=== PATIENT | female | born 1945 | race Caucasian/White ===

== ENCOUNTER → 2022-09-01 13:03 | Outpatient (BNVA) | payer MEDICARE, OTHER, SELFPAY | PROVIDERS: PCP Internal Medicine; Visit Provider Internal Medicine Pulmonary Disease | DX: J44.9 Chronic obstructive pulmonary disease, unspecified (principal); Z80.1 Family history of malignant neoplasm of trachea, bronchus and lung | CPT/HCPCS: 99202 ==

== ENCOUNTER 2022-09-12 16:19 | Outpatient (REF) | payer MEDICARE, OTHER, SELFPAY ==
--- NOTE | ~2022-09-12 | CT_ITS ---
EXAMINATION: CT CHEST WITHOUT CONTRAST CLINICAL INFORMATION: Family history of lung cancer COMPARISON: None TECHNIQUE: Multidetector volumetric CT imaging of the chest was done. Axial MIP volume rendering provided. Sagittal and coronal reformatted images were obtained. This CT examination was performed using dose optimization techniques as appropriate, variously including the following: *Automated exposure control *Adjustment of mA and/or kV according to patient size (this includes techniques or standardized protocols for targeted exams where dose is matched to indication/reason for exam; i.e. extremities or head) *Use of iterative reconstruction technique DLP: 147 mGy-cm FINDINGS: LUNGS: There are several clustered small peribronchial nodules in the right lower lobe suggestive of tree-in-bud appearance or airways disease. Largest pulmonary nodule measures 4 mm axial image 256 series 7. There are several clustered calcified and noncalcified left lower lobe nodules and increased linear markings or scarring for example axial image 250- 280 series 7 in the left lower lobe. Largest discrete nodule measures 4 mm axial image 260 or series 7. There is a 3 mm peripheral or subpleural left upper lobe nodule axial image 276 series 7. There is a 3 mm left upper lobe nodule axial image 298 series 7. There is a 3 mm calcified right lower lobe nodule axial image 294 series 7. There is a 3 mm right middle lobe nodule axial image 352 series 7. There are clustered irregularly-shaped medial segment right middle lobe nodules. Largest nodule measures 6 x 12 mm axial image 402 series 7. There are clustered nodules in the anterior segment of the both upper lobes near the interhemispheric fissure maximum measuring 3 to 4 mm on the right axial image 257 series 7 and 5 x 10 mm on the left axial image 317 series 7. MEDIASTINUM: Normal thyroid gland. Normal heart size. No pericardial effusion. Normal caliber thoracic aorta. No enlarged hilar or mediastinal lymph nodes. CORONARY ARTERY CALCIFICATION: Mild PLEURA: There is no pleural effusion. No pleural mass or thickening. AXILLA: No lymphadenopathy. UPPER ABDOMEN: The gallbladder has been removed. 3 cm cyst in the upper pole of the left kidney. OSSEOUS STRUCTURES: Degenerative changes of the spine. CT/CT chest wo IV con IMPRESSION: Bilateral pulmonary nodules, majority appear clustered suggesting tree-in-bud appearance or infectious or inflammatory process, the largest nodule measuring 6 x 12 mm in the right middle lobe. According to the UPDATED 2017 Fleischner Society recommendations, the advised follow-up imaging greater than 8 mm nodule: Low dose chest CT follow-up in 3 months for high and low risk low risk patients. Fleischner guidelines were followed.
== END 2022-09-12 16:20 | disposition home or self-care (01) ==
LOC: HO.CT 16:19
PROVIDERS: Visit Provider Internal Medicine Pulmonary Disease
DX: R91.8 Other nonspecific abnormal finding of lung field (principal); Z80.1 Family history of malignant neoplasm of trachea, bronchus and lung
CPT/HCPCS: 71250

== ENCOUNTER → 2022-10-05 12:49 | Outpatient (BNVA) | payer MEDICARE, OTHER, SELFPAY | PROVIDERS: PCP Internal Medicine; Visit Provider Internal Medicine Pulmonary Disease | DX: R91.1 Solitary pulmonary nodule (principal); Z80.1 Family history of malignant neoplasm of trachea, bronchus and lung | CPT/HCPCS: 99212 ==

== ENCOUNTER 2023-01-08 11:07 | Outpatient (REF) | payer MEDICARE, OTHER, SELFPAY ==
--- NOTE | ~2023-01-08 | CT_ITS ---
EXAMINATION: CT CHEST WITHOUT CONTRAST CLINICAL INFORMATION: Solitary pulmonary nodule. COMPARISON: CT chest 09/12/2022. TECHNIQUE: Multidetector volumetric CT imaging of the chest was done. Axial MIP volume rendering provided. Sagittal and coronal reformatted images were obtained. This CT examination was performed using dose optimization techniques as appropriate, variously including the following: *Automated exposure control *Adjustment of mA and/or kV according to patient size (this includes techniques or standardized protocols for targeted exams where dose is matched to indication/reason for exam; i.e. extremities or head) *Use of iterative reconstruction technique DLP: 152 mGy-cm FINDINGS: SEARCH DIRECTOR: Well-inflated lungs. LUNGS: There is a tree-in-bud appearance in the right lower lobe adjacent to the major fissure axial image 260/5, linear ill-defined opacity with calcification in left lower lobe axial image 254/5, 3 mm nodule left lower lobe lateral segment image 279/5, 2 mm nodule left upper lobe anteriorly image 293/5, 2 mm nodule right middle lobe axial image 354/5. Several clustered nodules irregular-shaped right middle lobe are stable. There are subpleural linear densities in the right lower lobe lateral basal segment. MEDIASTINUM: Thyroid lobes are symmetric and normal. The central trachea and bronchi are widely patent. The heart size and great vessels are normal caliber. No abnormal-size mediastinal lymph node seen. There is no pericardial effusion. CORONARY ARTERY CALCIFICATION: None visualized on this study. PLEURA: There is no pleural effusion. No pleural mass or thickening. AXILLA: No abnormal axillary lymph node seen. UPPER ABDOMEN: Visualized liver, spleen, pancreas and bilateral adrenal glands unremarkable. The gallbladder has been surgically removed. OSSEOUS STRUCTURES: No aggressive lytic or sclerotic process seen. CT/CT chest wo IV con IMPRESSION: Stable multiple bilateral pulmonary nodules. No new pulmonary nodule seen. Likely inflammatory or infectious etiology. No bronchiectasis or bronchial wall thickening. No abnormal mediastinal or hilar lymphadenopathy. Fleischner guidelines were followed.
== END 2023-01-08 11:08 | disposition home or self-care (01) ==
LOC: HO.CT 11:07
PROVIDERS: PCP Internal Medicine; Visit Provider Internal Medicine Pulmonary Disease
DX: R91.1 Solitary pulmonary nodule (principal)
CPT/HCPCS: 71250

== ENCOUNTER → 2023-01-23 13:10 | Outpatient (BNVA) | payer MEDICARE, OTHER, SELFPAY | PROVIDERS: PCP Internal Medicine; Visit Provider Internal Medicine Pulmonary Disease | DX: R91.1 Solitary pulmonary nodule (principal); Z80.1 Family history of malignant neoplasm of trachea, bronchus and lung | CPT/HCPCS: 99212 ==

== ENCOUNTER 2023-07-09 13:55 | Outpatient (REF) | payer MEDICARE, OTHER, SELFPAY ==
--- NOTE | ~2023-07-09 | CT_ITS ---
EXAMINATION: CT CHEST WITHOUT CONTRAST CLINICAL INFORMATION: Solitary pulmonary nodule. COMPARISON: Prior CT scans of the chest 01/08/2023 ( Stable multiple bilateral pulmonary nodules. No new pulmonary nodule seen. Likely inflammatory or infectious etiology. ) along with 09/12/2022. TECHNIQUE: Multidetector volumetric CT imaging of the chest was done. Axial MIP volume rendering provided. Sagittal and coronal reformatted images were obtained. This CT examination was performed using dose optimization techniques as appropriate, variously including the following: *Automated exposure control *Adjustment of mA and/or kV according to patient size (this includes techniques or standardized protocols for targeted exams where dose is matched to indication/reason for exam; i.e. extremities or head) *Use of iterative reconstruction technique DLP: 141 mGy-cm FINDINGS: LUNGS: Some small lung nodules, some calcified and some in tree-in-bud formation have demonstrated no worrisome change when compared to the prior study. None of the nodular densities are greater than 3 mm in size. A concerning lung mass is not present at this time. Green images of all abnormalities have been saved. MEDIASTINUM: Heart size normal. Calcific plaque present in the thoracic aorta. The visualized thyroid appears normal. No mediastinal or hilar lymphadenopathy is seen. CORONARY ARTERY CALCIFICATION: Present PLEURA: There is no pleural effusion. No pleural mass or thickening. AXILLA: No lymphadenopathy. UPPER ABDOMEN: A benign left upper pole 3.6 cm Bosniak class I renal cyst is noted which requires no additional imaging or follow up. No solid renal masses are seen. Status post cholecystectomy. OSSEOUS STRUCTURES: Degenerative changes are present in the spine without bony destructive lesions. CT/CT chest wo IV con IMPRESSION: 1. No worrisome lung mass is seen. 2. Lung nodules are stable. 3. Incidentally noted benign left renal cyst and degenerative changes in the spine. Fleischner guidelines were followed.
== END 2023-07-09 13:56 | disposition home or self-care (01) ==
LOC: HO.CT 13:55
PROVIDERS: PCP Internal Medicine; Visit Provider Internal Medicine Pulmonary Disease
DX: R91.1 Solitary pulmonary nodule (principal)
CPT/HCPCS: 71250

== ENCOUNTER 2023-07-12 11:16 | Outpatient (AMB) | payer MEDICARE, OTHER, SELFPAY ==
--- NOTE | 2023-07-12 11:17 | A.OFFVIS_ITS ---
Intake Vital Signs 07/12/23 11:18 Height 5 ft 2 in Weight 158 lb 11.725 oz BMI 29.0 BP 102/62 Blood Pressure Location Lt brachial Position Sitting Pulse 75 Pulse Source Doppler Pulse Oximetry (%) 96 Oxygen Delivery Method Room Air Intake Visit Reasons: Pulmonary Nodules Allergies No Known Allergies Allergy (Verified 07/12/23 11:20) HPI Pulmonary Nodules HPI Details 78-year-old lady, former minimal smoker in her 30s, with underlying family history of nonsmall lung cancer in her daughter in her 40s and bone marrow cancer in her father with remote history of 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 Her 6 months follow-up CT chest showed stability of underlying nodules. She denies any recent exacerbations. [facility] Social History (Updated 07/12/23 @ 11:22 by Samantha Hines [facility]) Patient Tobacco Use Status: Never used Tobacco Review of Systems Const Denies daytime sleepiness, Denies excessive sweating, Denies fatigue, Denies fever(s), Denies lethargy, Denies malaise, Denies night sweats, Denies snoring and Denies weight loss Eyes Denies blurry vision and Denies itchy eyes ENT Denies nasal congestion, Denies post nasal drip, Denies sinus pain, Denies sinus pressure and Denies other ( Thrush) Card Denies chest pain, Denies pedal edema, Denies dyspnea, Denies orthopnea and Denies paroxysmal nocturnal dyspnea Resp Denies cough, Denies hemoptysis, Denies excessive phlegm production, Denies dyspnea, Denies snoring and Denies wheezing GI Denies abdominal pain and Denies heartburn Musc Denies myalgias, Denies arthralgias and Denies joint swelling Skin/Breast Denies rash Neuro Denies memory loss and Denies seizure-like activity Psych Denies abnormal sleep pattern, Denies anxiety and Denies memory loss Endo Denies excessive sweating, Denies fatigue and Denies heat intolerance Yovani/Lymph Denies easy bruising Aller/Immun Denies itchy eyes, Denies seasonal rhinorrhea and Denies wheezing Physical Exam Vital Signs: Last Vital Signs Pulse 75 07/12/23 11:18 BP 102/62 07/12/23 11:18 Pulse Ox 96 07/12/23 11:18 Oxygen Delivery Method Room Air 07/12/23 11:18 BMI result Body Mass Index 29.0 Const General: no acute distress and alert Nutritional Appearance: not obese Orientation/consciousness: Other orientation findings ( oriented) HEENT Head: Yes atraumatic Eyes General: appearance normal, both eyes and all related structures Sclerae: sclerae normal EOM: EOMs intact bilaterally Neck Neck: Yes supple Lymphatic: no lymphadenopathy noted Resp Effort & Inspection: normal respiratory effort and no use of accessory muscles Auscultation: clear to auscultation bilaterally Cardio Rate: regular rate Rhythm: regular rhythm Heart sounds: no gallops, no murmurs and no rubs Skin General skin exam: other ( warm) Extrem General: No clubbing, No cyanosis and No edema Assessment & Plan Assessment & Plan (1) Pulmonary nodule: Code(s): R91.1 - Solitary pulmonary nodule Plan: Results of follow-up CT chest reviewed, pulmonary nodule stable on 3 and 6 months follow-up, will repeat CT chest in 12 months, if stable at that time, no further imaging follow-up would be needed. (2) Family history of lung cancer: Code(s): Z80.1 - Family history of malignant neoplasm of trachea, bronchus and lung (3) COPD (chronic obstructive pulmonary disease): Code(s): J44.9 - Chronic obstructive pulmonary disease, unspecified Plan: Patient only rarely uses her albuterol MDI. At this time does not Symbicort, will discontinue. Orders: Orders CT chest wo IV con 07/08/24 R91.1 - Solitary pulmonary nodule Coding Level of Care Code Est Pt Level 4 (70549) Diagnoses Pulmonary nodule R91.1 Family history of lung cancer Z80.1 COPD (chronic obstructive pulmonary disease) J44.9
[2023-07-12 11:18] VITALS: BP 102/62; PULSE 75; O2SAT 96; BMI 29.0
== END 2023-07-12 11:31 | disposition home or self-care (01) ==
PROVIDERS: PCP Internal Medicine; Visit Provider Internal Medicine Pulmonary Disease
DX: R91.1 Solitary pulmonary nodule (principal); Z80.1 Family history of malignant neoplasm of trachea, bronchus and lung; J44.9 Chronic obstructive pulmonary disease, unspecified
CPT/HCPCS: 99214

== ENCOUNTER → 2023-07-12 11:16 | Outpatient (BNVA) | payer MEDICARE, OTHER, SELFPAY | PROVIDERS: PCP Internal Medicine; Visit Provider Internal Medicine Pulmonary Disease | DX: R91.1 Solitary pulmonary nodule (principal); J44.9 Chronic obstructive pulmonary disease, unspecified; Z80.1 Family history of malignant neoplasm of trachea, bronchus and lung | CPT/HCPCS: 99212 ==

== ENCOUNTER 2024-05-23 12:05 | Outpatient (REF) | payer MEDICARE, OTHER, SELFPAY | END 2024-05-23 12:06 | disposition home or self-care (01) | LOC: HO.SH 12:05 | PROVIDERS: Visit Provider Internal Medicine | DX: Z01.118 Encounter for examination of ears and hearing with other abnormal findings (principal); H90.3 Sensorineural hearing loss, bilateral | CPT/HCPCS: 92557 ==

== ENCOUNTER 2024-07-07 12:57 | Outpatient (REF) | payer MEDICARE, OTHER, SELFPAY ==
--- NOTE | ~2024-07-07 | CT_ITS ---
EXAMINATION: CT CHEST WITHOUT CONTRAST CLINICAL INFORMATION: Solitary pulmonary nodule. COMPARISON: CT chest dated July 09, 2023. TECHNIQUE: Multidetector volumetric CT imaging of the chest was done. Axial MIP volume rendering provided. Sagittal and coronal reformatted images were obtained. This CT examination was performed using dose optimization techniques as appropriate, variously including the following: *Automated exposure control *Adjustment of mA and/or kV according to patient size (this includes techniques or standardized protocols for targeted exams where dose is matched to indication/reason for exam; i.e. extremities or head) *Use of iterative reconstruction technique DLP: 274 mGy-cm FINDINGS: Submitted for interpretation on 09/19/2024. LUNGS: There are cluster of linear and 3 mm nodular attenuation seen in the lingula right middle lobe and the periphery of the left and right lower lung lobes. 3 mm subpleural nodule in the posterior left hemithorax. No consolidation, pleural effusion or pneumothorax. No bronchiectasis. No honeycombing. Respiratory airways patent. No lymphadenopathy in the mediastinum or perihilar or the axillary region. Calcified plaques in the thoracic aortic arch and the origin of its main branches. No aneurysm in the thoracic aorta. Focal consolidations in the coronary arteries. No pericardial effusion. 4 cm exophytic fluid density in the upper pole left kidney. 1.8 cm fluid density in the midportion of the right kidney. Calcified plaques in the splenic artery and the origin of the main renal arteries as well as the celiac trunk. Multilevel thoracolumbar spondylosis without acute fracture or listhesis. No acute cortical disruption in the ribs. The thyroid gland is not enlarged. CT/CT chest wo IV con IMPRESSION: Probably scarring attenuation abnormalities, right middle lobe, lingula and lower lung lobes. Stable. Cystic lesions, both kidneys. Fleischner guidelines were followed. Electronically signed by: Stewart Goff MD 09/19/2024 02:04 PM ALFR[facility]
== END 2024-07-07 12:58 | disposition home or self-care (01) ==
LOC: HO.CT 12:57
PROVIDERS: PCP Internal Medicine; Visit Provider Internal Medicine Pulmonary Disease
DX: R91.1 Solitary pulmonary nodule (principal)
CPT/HCPCS: 71250

== ENCOUNTER → 2024-07-07 13:02 | Outpatient (BNV) | payer MEDICARE, OTHER, SELFPAY | PROVIDERS: PCP Internal Medicine; Visit Provider Radiology Diagnostic Radiology | DX: R91.1 Solitary pulmonary nodule (principal) | CPT/HCPCS: 71250 ==

== ENCOUNTER 2024-07-15 14:39 | Outpatient (AMB) | payer MEDICARE, OTHER, SELFPAY ==
--- NOTE | 2024-07-15 14:45 | MHC.OFFVIS ---
Vital Signs 07/15/24 14:47 Height 5 ft 3 in Weight 156 lb BMI 27.6 BP 132/77 Blood Pressure Location Rt brachial Position Sitting Pulse 69 Pulse Source Doppler Pulse Oximetry (%) 98 Oxygen Delivery Method Room Air Intake Visit Reasons: copd Allergies Sulfa (Sulfonamide Antibiotics) Allergy (Severe, Verified 07/15/24 14:55) rash cats Allergy (Severe, Uncoded 07/15/24 14:55) Eye Swelling IV contrast Allergy (Severe, Uncoded 07/15/24 14:55) Blister HPI HPI copd: Details: 79-year-old lady, former minimal smoker in her 30s, with underlying family history of nonsmall lung cancer in her daughter in her 40s and bone marrow cancer in her father with remote history of 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 Her 12 month follow-up CT scan results are not available for this appointment, however on my review, no worrisome pulmonary nodules are noted. She rarely requires to use her albuterol MDI. [facility] Social History Patient Tobacco Use Status: Never used Tobacco Review of Systems Const Denies daytime sleepiness, Denies excessive sweating, Denies fatigue, Denies fever(s), Denies lethargy, Denies malaise, Denies night sweats, Denies snoring and Denies weight loss Eyes Denies blurry vision and Denies itchy eyes ENT Denies nasal congestion, Denies post nasal drip, Denies sinus pain, Denies sinus pressure and Denies other ( Thrush) Card Denies chest pain, Denies pedal edema, Denies dyspnea, Denies orthopnea and Denies paroxysmal nocturnal dyspnea Resp Denies cough, Denies hemoptysis, Denies excessive phlegm production, Denies dyspnea, Denies snoring and Denies wheezing GI Denies abdominal pain and Denies heartburn Musc Denies myalgias, Denies arthralgias and Denies joint swelling Skin/Breast Denies rash Neuro Denies memory loss and Denies seizure-like activity Psych Denies abnormal sleep pattern, Denies anxiety and Denies memory loss Endo Denies excessive sweating, Denies fatigue and Denies heat intolerance Yovani/Lymph Denies easy bruising Aller/Immun Denies itchy eyes, Denies seasonal rhinorrhea and Denies wheezing Physical Exam Vital Signs: Last Vital Signs Pulse 69 07/15/24 14:47 BP 132/77 07/15/24 14:47 Pulse Ox 98 07/15/24 14:47 Oxygen Delivery Method Room Air 07/15/24 14:47 BMI result Body Mass Index 27.6 Const General: no acute distress and alert Nutritional Appearance: not obese Orientation/consciousness: Other orientation findings ( oriented) HEENT Head: Yes atraumatic Eyes General: appearance normal, both eyes and all related structures Sclerae: sclerae normal EOM: EOMs intact bilaterally Neck Neck: Yes supple Lymphatic: no lymphadenopathy noted Resp Effort & Inspection: normal respiratory effort and no use of accessory muscles Auscultation: clear to auscultation bilaterally Cardio Rate: regular rate Rhythm: regular rhythm Heart sounds: no gallops, no murmurs and no rubs Skin General skin exam: other ( warm) Extrem General: No clubbing, No cyanosis and No edema Assessment & Plan Assessment & Plan (1) COPD (chronic obstructive pulmonary disease): Code(s): J44.9 - Chronic obstructive pulmonary disease, unspecified Category: Medical Plan: Minimal smoker, rarely requires albuterol MDI. Continue current regimen. (2) Pulmonary nodule: Code(s): R91.1 - Solitary pulmonary nodule Category: Medical Plan: Results of [address] chest follow-up not available for this visit. On my review no worrisome nodules. At this time no further imaging follow-up is required. Coding Level of Care Code Est Pt Level 4 (80109) Diagnoses COPD (chronic obstructive pulmonary disease) J44.9 Pulmonary nodule R91.1
[2024-07-15 14:47] VITALS: BP 132/77; PULSE 69; O2SAT 98; BMI 27.6
== END 2024-07-15 15:00 ==
PROVIDERS: PCP Internal Medicine; Visit Provider Internal Medicine Pulmonary Disease
DX: J44.9 Chronic obstructive pulmonary disease, unspecified (principal); R91.1 Solitary pulmonary nodule
CPT/HCPCS: 99214

== ENCOUNTER → 2024-07-15 14:39 | Outpatient (BNVA) | payer MEDICARE, OTHER, SELFPAY | PROVIDERS: PCP Internal Medicine; Visit Provider Internal Medicine Pulmonary Disease | DX: J44.9 Chronic obstructive pulmonary disease, unspecified (principal); R91.1 Solitary pulmonary nodule; Z87.891 Personal history of nicotine dependence | CPT/HCPCS: 99212 ==

== ENCOUNTER 2025-09-18 14:35 | Outpatient (AMB) | payer MEDICARE, OTHER, SELFPAY ==
--- OUTSIDE RECORDS SUMMARY | 2025-02-09 03:45 | XMS_ITS ---
Author Organization [facility] Address [address] [place], [place] [id number] Care Team Providers Care Loss Prevention Auditor Name Role Phone DWIGHT RAMOS Primary Care Provide r [phone] RICKY CRUMP Unavailable [phone] ALLERGIES Allergen (clinical drug ingredient) Drug/Non Drug Allergy documented on EMR Reaction Allergy Type Onset Date Status IVP DYE (uncoded) hives Allergy Ac tive Cat dander Cat Dander Unknown Allergy Active Substance with sulfonamide structure and antibacterial mechanism of action (substance) Sulfa Antibiotics anaphylaxis Drug Allergy Active REASON FOR VISIT Left leg wound MEDICATIONS Medication SIG (Take, Route, Frequency, Duration) Notes Start Date End Date Status Losartan Potassium 25 MG 1 tab(s) orally twice a day Active Spironolactone 25 MG 1 tablet Orally Onc e a day Active Tylenol 8 Hour Arthritis Pain 650 MG 2 tablets as needed Orally every 8 hrs Active Carvedilol 6.25 MG 1 tablet with food Orally Twice a day Active Collagen Ultra - as directed Orally COLLAGEN PEPTIDES 400mg Active Nitroglycerin 0.4 MG as directed Translingual every 5 minutes as needed Active Vitamin C 500 MG 1 tab(s) orally once a day Active Vitamin D3 50 MCG (2000 UT) 2 cap(s) Orally once a day Active Magnesium 300 MG 1 capsule with a meal Orally Once a day Active B Complex - 1 cap(s) Orally once daily Active Albuterol Sulfate HFA 108 (90 Base) MCG/ACT 1 puff as needed Inhalation every 4 hrs 10/27/2022 Active Gabapentin 100 MG 2-3 cap(s) orally at night prn Active Atorvastatin Calcium 20 MG 1 tab(s) orally once a day Active Allopurinol 100 MG TAKE 1 TABLET BY MOUTH EVERY DAY Active LORazepam 0.5 MG 1 tablet at bedtime as needed Orally as needed 11/19/2024 Active VITAL SIGNS Height 61.75 in 02/09/2025 Weight 155 lbs 02/09/2025 Blood pressure systolic 116 mm Hg 02/10/20 25 Blood pressure diastolic 73 mm Hg 025 BMI 28.58 kg/m2 02/09/2025 Encounters Encounter Location Date Provider Diagnosis [facility] [address] [place] [address] 02/09/2025 DWIGHT FARMERACCO Laceration without foreign body, left lower leg, subsequent encounter S81.812D ; Hematoma of right breast N64.89 ; Primary hypertension I10 ; High cholesterol E78.00 ; Anxiety F41.9 and History of gout Z87.39 ASSESSMENTS Encounter Date Diagnosis Assessment Notes Treatment Notes Treatment Clinical Notes Section Notes 02/09/2025 Laceration without foreign body, left lower leg, subsequent encounter (ICD-10 - S81.812D) cont tx and fu as directed 02/09/2025 Hematoma of right breast (ICD-10 - N64.89) improving/resol ving 02/09/2025 Primary hypertension (ICD-10 - I10) is tolerating current regimen well and will cont 02/09/2025 High cholesterol (ICD-10 - E78.00) cont statin and heart healthy diet will monitor fasting lipids 02/09/2025 Anxiety (ICD-10 - F41.9) see hpi feels mood good overall 02/09/2025 History of gout (ICD-10 - Z87.39) doing well on allopurinol, no flares PLAN OF TREATMENT Treatment Notes Assessment Notes Laceration without foreign b amadeo, left lower leg, subsequent encounter cont tx and fu as directed Hematoma of right breast improving/resol ving Primary hypertension is tolerating curre nt regimen well and will cont High cholesterol cont statin and heart healthy diet will monitor fasting lipids Anxiety see hpi feels mood good overall History of gout doing well on allopu rinol, no flares Next Appt Details Follow Up: prn,6 Months, Fidelia son: Provider Name:DWIGHT ROSE, 03/19/2026 01:30:00 PM, [address] [facility], [place], [address], Progress Notes * Examination Category Sub-Category Detail Notes Category Not es General Examination see abov e History and Physical Notes * HPI (History of Present Illness) Category Sub-Category Detail Notes Category Not es General Pt Is here today for a follow-up visit h/o htn, ckd, abnl stress test, lbbb, mild copd, anxiety, The following is copied/reviewed/edited from previous: apc visit on 01/30/25 Pt here for f/u of L skin tear. (she also had apc visit for this on 01/26) at which time a referra to wound care was placed. She reports 2 days ago she noticed swelling and redness to her L ankle and foot area. Her toes looked like sausages. No fevers. She denies pain. No purulent discharge. She finished doxycycline 3 days ago. Today she reports her leg is much less swollen and red. She hasnt heard from [facility] wound clinic as of yet. Notes: she has a hematoma that may need to be drained; no evidence of cellulitis; -she has since been seen by wound care and has fu scheudled She was seen in the emergency room on 11/17/2023 with head injury. Had been complaining of right shoulder pain, neck pain, head pain. Questionable LOC. Day previously had been walking down the steps and slipped and fell striking her head on the right side of her body. -she had CT of head and neck. No acute injury no fracture or misalignment. had slipped on carpeted basement stairs -prior to injury had xray of neck for radiculopathy into both arms, had 11/23 visit was feeling okay and then over two weeks ago had a flare and doesn't know why. pain and nubmness radiating into arms and hands Does not know why but has had aches and pains throughout her whole body as well- we had sent in medrol dose pack but didnt receive , fortunately tells me her rheum sent in methyl- prednisone finished about a day ago adn is feeling better - has seen rheum, dr. hurt in past, History of arthritis, costochondritis in the past. Gets occasional injections for trochanteric bursitis. - h/o colon adenoma. gi [place] - 01/2021 CP admit, abnl stress test. fu w/ PVC Dr. Cisneros, [place]. fu q 6 mo. on statin and beta adam (no asa d/t easy bruising). EF 45%. . has fu w/ [facility]. no changes to meds. - on symbicort mild copd, h/o tobacco x 6 yr and h/o second hand smoke exposure. - occ anxiety 0.5 lorazepam, once in a while, hasnt' needed csc for this. uses infreq - colonoscopy 12/2018. fu in 5 yrs. - had seen allergy in distant past Dr. Augustin prn and flu/pnuemo shot fam h/o daughter lung ca 41 yo mom colorectal ca - h/o covid vac x 2 and booster and flu and both pneumonia vac - mammo up to date - chronic LE edema R>L wears compression stockings. bruises easily aspirin stopped months ago. cards did recent labs normal H/H and platelets. was referred to hematology. missed appt and will reschedule. Reminded her to bring in all medications including vitamins of herbal supplements to the visit. mild copd had pfts at [facility] about 2 yrs ago, ref to and seeing pulm at [place].at er visit after fall had imaging of neck and incidental note of ?pulm nodule, has had CT w/ pulm that noted this -She is taking and tolerating medications well venous testing for venous insuff was ordered by cardiology to be done at [place]. -earlier this year had fall irritated foot cyst which got infected, treated by rheum which josiah debrediment abx etc. It improved but not completely resolved. referred by him to veronique salcedo Dr. unfortunately because it affected her gait it caused pelvic dysfunction which she goes to PT for and affected her back and caused her trap pain dr fiordaliza salas CTS surgery 06/2024 recent notes reviewed w/ patient: flu and rsv utd -------- ROS GENERAL: No malaise, significant weight loss or fever HEENT: No changes in vision or hearing. No sore throat. No neck pain. No lumps or masses noted in neck. RESPIRATORY: No cough, wheezing see hpi CARDIOVASCULAR: No chest pain, leg swelling or palpitations GI: No abdominal discomfort, blood in stools or black stools : No incontinence. No dysuria. No gross hematuria. No nocturia. MUSCULOSKELETAL: see hpi SKIN: see hpi PSYCH: No sleep disturbance, mood disorder or recent psychosocial stressors. ENDOCRINE: No cold or heat intolerance, polyuria, polydipsia or goiter. HEME/LYMPH: see hpi No lymph node enlargement or tenderness. NEURO: No persistent headache, syncope, seizures, see hpi -------- PE APPEARANCE: Alert and in no acute distress HEENT: NCAT, EOMI, nl conjunctiva. external ears normal. tms normal, no sinus tenderness. no lymphadenopathy or thyromegaly HEART: RRR with normal S1 and S2 LUNG: clear to auscultation ABDOMEN: Bowel sounds normoactive, soft, non-tender, nondistended BACK: No pain to palpation EXTREMITIES: Extremities warm and without edema. NEURO: Awake, alert and oriented x 3 , gait normal, 5/5 strength in all 4 ext prox and distal SKIN: Skin color, texture, turgor normal. left LE skin tear/lacreation, wrapped, slight serosanguinous drainage
--- OUTSIDE RECORDS SUMMARY | 2025-02-23 06:12 | XMS_ITS ---
Author Organization [facility] Address [address], [place] [id number] Care Team Providers Care Advertising Teacher Name Role Phone DWIGHT RAMOS Primary Care Provide r [phone] RICKY CRUMP [phone] REASON FOR VISIT COVID Positive Encounters Encounter Location Date Provider Diagnosis [facility] [address] [place] [phone] 02/23/2025 DWIGHT RAMOS PLAN OF TREATMENT Next Appt Details Provider Name:DWIGHT ROSE, 03/19/2026 01:30:00 PM, [address] [place] [address], [phone],
--- OUTSIDE RECORDS SUMMARY | 2025-03-09 05:07 | XMS_ITS ---
Author Organization [facility] Address [address] [place], [place] [id number] Care Team Providers Care Java Developer With Security Clearance Name Role Phone DWIGHT RAMOS Primary Care Provide r [phone] RICKY CRUMP [phone] REASON FOR VISIT rescheduled appt Encounters Encounter Location Date Provider Diagnosis [facility] [address] [place] [address] 03/09/2025 DWIGHT RAMOS PLAN OF TREATMENT Next Appt Details Provider Name:DWIGHT ROSE, 03/19/2026 01:30:00 PM, [address] [place], [address],
--- OUTSIDE RECORDS SUMMARY | 2025-03-18 08:00 | XMS_ITS ---
Author Organization [facility] Address [address] [place], [place] [id number] Care Team Providers Care Axle Inspector Name Role Phone DWIGHT RAMOS Primary Care Provide r [phone] RICKY CRUMP Unavailable [phone] ALLERGIES Allergen (clinical drug ingredient) Drug/Non Drug Allergy documented on EMR Reaction Allergy Type Onset Date Status IVP DYE (uncoded) hives Allergy Ac tive Cat dander Cat Dander Unknown Allergy Active Substance with sulfonamide structure and antibacterial mechanism of action (substance) Sulfa Antibiotics anaphylaxis Drug Allergy Active REASON FOR REFERRAL Reason for eval and tx of l eft hip pain. Alternative PT fax [phone]. pls print Diagnosis 1 Left hip pain (M25.5 52) Referral Organization [facility] Referring Provider First Name DWIGHT Referring Provider Last Name URSULA ROMAN Referring Provider Speciality Internal M edicine Referred Provider Specialty Physical The remyy General Notes Alma KELLY [place] 1 10/31/2024 04:07:22 PM > [phone] Alternative PT faxed referral and last ov notes Referral Priority Routine REASON FOR VISIT 6m f/u MEDICATIONS Medication SIG (Take, Route, Frequency, Duration) Notes Start Date End Date Status Collagen Ultra - as directed Orally COLLAGEN PEPTIDES 400mg Active Losartan Potassium 25 MG 1 tab(s) orally twice a day Active B Complex - 1 cap(s) Orally once daily Active Carvedilol 6.25 MG 1 tablet with food Orally Twice a day Active Spironolactone 25 MG 1 tablet Orally Onc e a day Active Nitroglycerin 0.4 MG as directed Translingual every 5 minutes as needed Active Atorvastatin Calcium 20 MG 1 tab(s) orally once a day Active Vitamin D3 50 MCG (1999 UT) 2 cap(s) Orally once a day Active Vitamin C 500 MG 1 tab(s) orally once a day Active Magnesium 300 MG 1 capsule with a meal Orally Once a day Active Gabapentin 100 MG 2-3 cap(s) orally at night prn Active Tylenol 8 Hour Arthritis Pain 650 MG 2 tablets as needed Orally every 8 hrs Active LORazepam 0.5 MG 1 tablet at bedtime as needed Orally as needed 11/19/2024 Active Allopurinol 100 MG TAKE 1 TABLET BY MOUTH EVERY DAY Active Albuterol Sulfate HFA 108 (90 Base) MCG/ACT 1 puff as needed Inhalation every 4 hrs 10/27/2022 Active SOCIAL HISTORY Tobacco Use: Social History Observation Description Date Details (start date - stop date) Former Smoker NA - NA Sex Assigned At : Social History Observation Description Sex Assigned At Unknown Smoking Question Answer Notes Are you a: former smoker Section Notes: quit jul VITAL SIGNS Height 61.75 in 03/18/2025 Weight 154 lbs 03/18/2025 Blood pressure systolic 112 mm Hg 03/18/20 25 Blood pressure diastolic 71 mm Hg 025 BMI 28.39 kg/m2 03/18/2025 Encounters Encounter Location Date Provider Diagnosis [facility] [address] [place] [address] 03/18/2025 DWIGHT RAMOS Laceration of left lower extremity, sequela S81.812S ; High cholesterol E78.00 ; Primary hypertension I10 ; Anxiety F41.9 ; Left hip pain M25.552 ; History of gout Z87.39 and Cardiomyopathy, unspecified type I42.9 ASSESSMENTS Encounter Date Diagnosis Assessment Notes Treatment Notes Treatment Clinical Notes Section Notes 03/18/2025 Laceration of left lower extremity, sequela (ICD-10 - S81.812S) cont fu w/ [facility] as planned sig improved 03/18/2025 High cholesterol (ICD-10 - E78.00) cont statin and heart healthy 03/18/2025 Primary hypertension (ICD-10 - I10) cont current med regimen and will monitor 03/18/2025 Anxiety (ICD-10 - F41.9) feels mood is good 03/18/2025 Left hip pain (ICD-10 - M25.552) bursitis and OA had been doing well until fall in 12/2024 will refer back to PT 03/18/2025 History of gout (ICD-10 - Z87.39) cont current dose allopurinol and will monitor uric acid 03/18/2025 Cardiomyopathy, unspecified type (ICD-10 - I42.9) cont meds adn fu w/ cardiology as planned PLAN OF TREATMENT Treatment Notes Assessment Notes Laceration of left lower extremity, sequ tere cont fu w/ [facility] as planned sig improved High cholesterol cont statin and hear t healthy Primary hypertension cont current med re gimen and will monitor Anxiety feels mood is good Left hip pain bursitis and OA had been doing well until fall in 12/2024 will refer back to PT History of gout cont current dose al lopurinol and will monitor uric acid Cardiomyopathy, unspecified type cont me ds adn fu w/ cardiology as planned Referrals Referral Date Details for eval and tx of l eft hip pain. Alternative PT fax [phone]. pls print Next Appt Details Follow Up: pt referral pls p rint for pt; fu 6mo, Reason: Provider Name:DWIGHT MURGUIA MILTON, 03/19/2026 01:30:00 PM, [address] [place], [address], Progress Notes * Examination Category Sub-Category Detail [...] swollen and red. She hasnt heard from [facility] wound clinic as of yet. Notes: she has a hematoma that may need to be drained; no evidence of cellulitis; -she has since been seen by wound care and has fu scheduled at [facility] She was seen in the emergency room [...] trochanteric bursitis. - h/o colon adenoma. gi [facility] - 01/2021 [facility] admit, abnl stress test. fu w/ PVC Dr. Cisneros, [place]. fu q 6 mo. on statin and beta adam (no asa d/t easy bruising). EF 45%. . has fu [facility]/ [facility]. no changes to meds. - on symbicort mild copd, h/o tobacco x 6 yr and h/o second hand smoke exposure. has been ref to pulm at [place] - occ anxiety 0.5 lorazepam, once in [...] the visit. mild copd had pfts at [facility] about 2 yrs ago, ref to and seeing pulm at [place].at er visit after fall had imaging of neck and incidental note of ?pulm nodule, has had CT w/ pulm that noted this -She is taking and tolerating medications well venous testing for venous insuff was ordered by cardiology to be done at [place]. -earlier this year had fall irritated foot cyst which got infected, treated by rheum which sumanthq debrediment abx etc. It improved but not [...] LE skin tear/lacreation, wrapped, slight serosanguinous drainage Consultation Request Notes Referral Date Referring Provider Referred Provider Not es 03/18/2025 DWIGHT RAMOS , for eval and tx of left hip pain. Alternative PT fax [phone]. pls print
--- OUTSIDE RECORDS SUMMARY | 2025-03-20 05:00 | XMS_ITS ---
Author Organization [facility] Address [address] [place], [place] [id number] Care Team Providers Care Diabetologist Name Role Phone DWIGHT RAMOS Primary Care Provide r [phone] RICKY CRUMP [phone] REASON FOR VISIT 39, 6 month fu Encounters Encounter Location Date Provider Diagnosis [facility] [address] [place], [place] [id number] 03/20/2025 DWIGHT RAMOS PLAN OF TREATMENT Next Appt Details Provider Name:DWIGHT ROSE, 03/19/2026 01:30:00 PM, [address] [place] [address], [phone],
--- OUTSIDE RECORDS SUMMARY | 2025-04-08 07:38 | XMS_ITS ---
Author Organization [facility] Address [address] [place], [place] [phone] Care Team Providers Care Sdet Name Role Phone DWIGHT RAMOS Primary Care Provide r [phone] RICKY CRUMP Unavailable [phone] REASON FOR VISIT sens erg sln/alt in PT poc 03/24/25 Encounters Encounter Location Date Provider Diagnosis [facility] [address] [place] [address] 04/08/2025 DWIGHT RAMOS PLAN OF TREATMENT Next Appt Details Provider Name:DWIGHT ROSE, 03/19/2026 01:30:00 PM, [address] [place], [address],
--- OUTSIDE RECORDS SUMMARY | 2025-04-15 08:48 | XMS_ITS ---
Author Organization [facility] Address [address] [place], [place] [id number] Care Team Providers Care Web Content Editor Name Role Phone DWIGHT RAMOS Primary Care Provide r [phone] RICKY CRUMP [phone] REASON FOR VISIT RX for Tizanidine / arm spasms MEDICATIONS Medication SIG (Take, Route, Fr equency, Duration) Notes Start Date End Date Status tiZANidine HCl 4 MG 1 tablet po bid prn Orally bid prn muscle spasm for 15 days Act swapnil Encounters Encounter Location Date Provider Diagnosis [address] [address] 04/15/2025 DWIGHT RAMOS PLAN OF TREATMENT Medication Medication Name Sig Start Date Stop Date Notes tiZANidine HCl 4 MG 1 tablet po bid prn Orally bid prn muscle spasm for 15 days Next Appt Details Provider Name:DWIGHT RSOE, 03/19/2026 01:30:00 PM, [address] [place], [address],
--- OUTSIDE RECORDS SUMMARY | 2025-08-28 10:39 | XMS_ITS ---
Author Organization [facility] Address [address] [place], [place] [id number] Care Team Providers Care Air Marshal Name Role Phone DWIGHT RAMOS Primary Care Provide r [phone] RICKY CRUMP Unavailable [phone] REASON FOR VISIT Labs Encounters Encounter Location Date Provider Diagnosis [facility] [address] [place] [address] 08/28/2025 DWIGHT RAMOS Anxiety F41.9 ; High cholesterol E78.00 ; Idiopathic chronic gout of multiple sites without tophus M1A.09X0 ; Neuropathy G62.9 and IFG (impaired fasting glucose) R73.01 ASSESSMENTS Encounter Date Diagnosis Assessment Notes Treatment Notes Treatment Clinical Notes Section Notes 08/28/2025 Anxiety (ICD-10 - F41.9) 08/28/2025 High cholesterol (ICD-10 - E78.00) 08/28/2025 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
--- OUTSIDE RECORDS SUMMARY | 2025-08-28 10:40 | XMS_ITS ---
Author Organization [facility] Address [address] [place], [place] [id number] Care Team Providers Care Cager Operator Name Role Phone DWIGHT RAMOS Primary Care Provide r [phone] RICKY CRUMP [phone] REASON FOR VISIT PT Request Encounters Encounter Location Date Provider Diagnosis [address] [address] 08/28/2025 DWIGHT RAMOS PLAN OF TREATMENT Next Appt Details Provider Name:DWIGHT ROSE, 03/19/2026 01:30:00 PM, [address] [place] [address], [phone],
--- OUTSIDE RECORDS SUMMARY | 2025-09-16 08:00 | XMS_ITS ---
Author Organization [facility] Address [address], [place] [id number] Care Team Providers [facility] Name Role Phone DWIGHT RAMOS Primary Care Provide r [phone] RICKY CRUMP Unavailable [phone] ALLERGIES Allergen (clinical drug ingredient) Drug/Non Drug Allergy documented on EMR Reaction Allergy Type Onset Date Status IVP DYE (uncoded) hives Allergy Ac tive Cat dander Cat Dander Unknown Allergy Active Substance with sulfonamide structure and antibacterial mechanism of action (substance) Sulfa Antibiotics anaphylaxis Drug Allergy Active REASON FOR VISIT 39/ 6 month f/u MEDICATIONS Medication SIG (Take, Route, Frequency, Duration) Notes Start Date End Date Status Vitamin C 500 MG 1 tab(s) orally once a day Active Vitamin D3 50 MCG (2000 UT) 2 cap(s) Orally once a day Active Magnesium 300 MG 1 capsule with a meal Orally Once a day Active B Complex - 1 cap(s) Orally once daily Active LORazepam 0.5 MG 1 tablet at bedtime as needed Orally as needed for 30 days 09/16/2025 Active Allopurinol 100 MG TAKE 1 TABLET BY MOUTH EVERY DAY Active Gabapentin 100 MG 2-3 cap(s) orally at night prn Active Atorvastatin Calcium 20 MG 1 tab(s) orally once a day Active Albuterol Sulfate HFA 108 (90 Base) MCG/ACT 1 puff as needed Inhalation every 4 hrs 10/27/2022 Active Carvedilol 6.25 MG 1 tablet with food Orally Twice a day Active Collagen Ultra - as directed Orally COLLAGEN PEPTIDES 400mg Active Tylenol 8 Hour Arthritis Pain 650 MG 2 tablets as needed Orally every 8 hrs Active tiZANidine HCl 4 MG 1 tablet po bid prn Orally bid prn muscle spasm for 15 days Active Spironolactone 25 MG 1 tablet Orally Once a day Active Losartan Potassium 25 MG 1 tab(s) orally twice a day Active SOCIAL HISTORY Tobacco Use: Social History Observation Description Date Details (start date - stop date) Former Smoker NA - NA Sex Assigned At : Social History Observation Description Sex Assigned At Unknown Smoking Question Answer Notes Are you a: former smoker How long has it been since you last smoked? > 10 years Section Notes: quit jul VITAL SIGNS Height 61.75 in 09/16/2025 Weight 151 lbs 09/16/2025 Blood pressure systolic 114 mm Hg 09/16/20 25 Blood pressure diastolic 74 mm Hg 025 BMI 27.84 kg/m2 09/16/2025 Encounters Encounter Location Date Provider Diagnosis [facility] [address] [place] [address] 09/16/2025 DWIGHT RAMOS High cholesterol E78.00 ; Chronic obstructive pulmonary disease, unspecified COPD type J44.9 ; Anxiety F41.9 ; Idiopathic chronic gout of multiple sites without tophus [id number].[id number] ; Neuropathy G62.9 ; Encounter for screening mammogram for malignant neoplasm of breast Z12.31 and Cardiomyopathy, unspecified type I42.9 ASSESSMENTS Encounter Date Diagnosis Assessment Notes Treatment Notes Treatment Clinical Notes Section Notes 09/16/2025 High cholesterol (ICD-10 - E78.00) doing well on current regimen 09/16/2025 Chronic obstructive pulmonary disease, unspecified COPD type (ICD-10 - J44.9) cont tx adn fu w/ pulm as planned 09/16/2025 Anxiety (ICD-10 - F41.9) Have reviewed mass CLIENT SERVICES COORDINATOR and refilled her annual prescription for benzodiazepine today. Have reviewed medication and possible side effects in detail. 09/16/2025 Idiopathic chronic gout of multiple sites without tophus (ICD-10 - M1A.09X0) seeing rheumatology at [facility], And will continue current regimen which has been working well for her 09/16/2025 Neuropathy (ICD-10 - G62.9) Has been stable and unchanged. Is taking for an PT for balance training. 09/16/2025 Encounter for screening mammogram for malignant neoplasm of breast (ICD-10 - Z12.31) Order slip for mammogram provided today. 09/16/2025 Cardiomyopathy, unspecified type (ICD-10 - I42.9) has had reg fu w/ cards, no change to regimen had recent (negative) testing for cardiac amyloid PLAN OF TREATMENT Medication Medication Name Sig Start Date Stop Date Notes LORazepam 0.5 MG 1 tablet at bedtime as needed Orally as needed for 30 days 09/16/2025 Treatment Notes Assessment Notes High cholesterol doing well on curren t regimen Chronic obstructive pulmonar y disease, unspecified COPD type cont tx adn fu w/ pulm as planned Anxiety Have reviewed mass [facility] and refilled her annual prescription for benzodiazepine today. Have reviewed medication and possible side effects in detail. Idiopathic chronic gout of leila villanueva sites without tophus seeing rheumatology at [facility], And will continue current regimen which has been working well for her Neuropathy Has been stable and unchanged. Is taking for an PT for balance training. Encounter for screening mamm ogram for malignant neoplasm of breast Order slip for mammogram provided today. Cardiomyopathy, unspecified type has had reg fu w/ cards, no change to regimen had recent (negative) testing for cardiac amyloid Pending Test Test Name Order Date Mammogram Screening Bilatera l, Perform ultrasound guided aspiration and/or breast biopsy if warranted 09/16/2025 Next Appt Details Follow Up: to nursing for fl u shot; 6 Months, Reason: Provider Name:DWIGHT ROSE, 03/19/2026 01:30:00 PM, [address] [place], [address], Progress Notes * Examination Category Sub-Category Detail Notes Category Not es General Examination see abov e History and Physical Notes * HPI (History of Present Illness) Category Sub-Category Detail Notes Category Not es General Pt Is here today for a follow-up visit h/o htn, ckd, abnl stress test, lbbb, mild copd, anxiety, The following is copied/reviewed/edited from previous: -had fu w/ rheum, at [facility] History of arthritis, gout, costochondritis in the past. Gets occasional injections for trochanteric bursitis. - h/o colon adenoma. gi maru - 01/2021 [facility] admit, abnl stress test. fu w/ PVC Dr. Cisneros, LBBB. fu q 6 mo. on statin and beta adam (no asa d/t easy bruising). EF 45%. . has fu w/ [facility]ology. no changes to meds. - on symbicort mild copd, h/o tobacco x 6 yr and h/o second hand smoke exposure. has been ref to pulm at [facility] and has fu - occ anxiety 0.5 lorazepam, once in a while, hasnt' needed csc for this. uses infreq. gets 1 rx /yr w/o csc - colonoscopy 12/2018. fu in 5 yrs. done 07/2025 dr villarreal, doesnt need any future exams - had seen allergy in distant past Dr. Demetria manrique and flu/pnuemo shot fam h/o daughter lung [...] ago, ref to and seeing pulm at [email or web address] er visit after fall had imaging of neck and incidental note of ?pulm nodule, has had CT w/ pulm that noted this -She is taking and tolerating medications well venous testing for venous insuff was ordered by cardiology to be done at [place]. unfortunately because it affected her gait it caused pelvic dysfunction which she goes to PT for and affected her back and caused her trap pain dr mancera right CTS surgery 06/2024 flu and rsv utd recent labs reviewed with patient today: Your recent labs show: Normal: Fasting glucose, electrolytes, kidney function, liver function. Thyroid function is good. Overall cholesterol panel is good. Overall blood sugar/hemoglobin A1c are normal at 5.5% -------- ROS GENERAL: No malaise, significant weight [...] and distal SKIN: Skin color, texture, turgor normal
[2025-09-18 14:37] VITALS: BP 102/62; PULSE 75; O2SAT 95; BMI 26.7
--- NOTE | 2025-09-18 14:37 | A.OFFVIS_ITS ---
Vital Signs 09/18/25 14:37 Height 5 ft 3 in Weight 151 lb BMI 26.7 BP 102/62 Blood Pressure Location Rt brachial Position Sitting Pulse 75 Pulse Source Pulse Oximeter Pulse Oximetry (%) 95 Oxygen Delivery Method Room Air Intake Visit Reasons: COPD Allergies shellfish derived (shellfish) Allergy (Severe, Verified 09/18/25 14:43) Unknown Sulfa (Sulfonamide Antibiotics) Allergy (Severe, Verified 09/18/25 14:43) rash cats Allergy (Severe, Uncoded 07/15/24 14:55) Eye Swelling IV contrast Allergy (Severe, Uncoded 07/15/24 14:55) Blister HPI HPI COPD: Details: 80-year-old lady, former minimal smoker in her 30s, with underlying family history of nonsmall lung cancer in her daughter in her 40s and bone marrow cancer in her father with remote history of cardiac dyspnea from CAD/bundle- branch block, now followed for pulmonary nodules. She is complaining of some dyspnea with exertion and also some orthopnea. [facility] Social History Patient Tobacco Use Status: Never used Tobacco Review of Systems Const Denies daytime sleepiness, Denies excessive sweating, Denies fatigue, Denies fever(s), Denies lethargy, Denies malaise, Denies night sweats, Denies snoring and Denies weight loss Eyes Denies blurry vision and Denies itchy eyes ENT Denies nasal congestion, Denies post nasal drip, Denies sinus pain, Denies sinus pressure and Denies other ( Thrush) Card Denies chest pain, Denies pedal edema, Denies dyspnea, Reports orthopnea and Reports paroxysmal nocturnal dyspnea Resp Denies cough, Denies hemoptysis, Denies excessive phlegm production, Denies dyspnea, Denies snoring and Denies wheezing GI Denies abdominal pain and Denies heartburn Musc Denies myalgias, Denies arthralgias and Denies joint swelling Skin/Breast Denies rash Neuro Denies memory loss and Denies seizure-like activity Psych Denies abnormal sleep pattern, Denies anxiety and Denies memory loss Endo Denies excessive sweating, Denies fatigue and Denies heat intolerance Yovani/Lymph Denies easy bruising Aller/Immun Denies itchy eyes, Denies seasonal rhinorrhea and Denies wheezing Physical Exam Vital Signs: Last Vital Signs Pulse 75 09/18/25 14:37 BP 102/62 09/18/25 14:37 Pulse Ox 95 09/18/25 14:37 Oxygen Delivery Method Room Air 09/18/25 14:37 BMI result Body Mass Index 26.7 Const General: no acute distress and alert Nutritional Appearance: not obese Orientation/consciousness: Other orientation findings ( oriented) HEENT Head: Yes atraumatic Eyes General: appearance normal, both eyes and all related structures Sclerae: sclerae normal EOM: EOMs intact bilaterally Neck Neck: Yes supple Lymphatic: no lymphadenopathy noted Resp Effort & Inspection: normal respiratory effort and no use of accessory muscles Auscultation: clear to auscultation bilaterally Cardio Rate: regular rate Rhythm: regular rhythm Heart sounds: no gallops, no murmurs and no rubs Skin General skin exam: other ( warm) Extrem General: No clubbing, No cyanosis and Yes edema (1+ bilateral) Assessment & Plan Assessment & Plan (1) Orthopnea: Code(s): R06.01 - Orthopnea Category: Medical Plan: Slowly worsening, also with increasing lower extremity edema. Patient has been advised to discuss increasing her diuretic dose with her credit and collections analyst. (2) COPD (chronic obstructive pulmonary disease): Code(s): J44.9 - Chronic obstructive pulmonary disease, unspecified Category: Medical Plan: Patient has been advised on utilizing her albuterol MDI more often. (3) Pulmonary nodule: Code(s): R91.1 - Solitary pulmonary nodule Category: Medical Plan: Will repeat CT chest. Orders: Orders CT chest wo IV con Today R91.1 - Solitary pulmonary nodule Coding Level of Care Code Est Pt Level 4 (86752) Diagnoses Orthopnea R06.01 COPD (chronic obstructive pulmonary disease) J44.9 Pulmonary nodule R91.1
--- OUTSIDE RECORDS SUMMARY | 2025-09-18 14:54 | XMS_ITS | Data Portability ---
Author Organization [facility], [facility] Address [address] [place] [address] Care Team Providers Care Structural Fitter Name Role Phone DWIGHT ALLEN Referring Provider DWIGHT KATZ Primary Care Provid er Assessment No assessment recorded. Plan of Treatment Reminders Order Date Submit Date Provider Last Modified By Organization Details Last Modified Time Details Appointments None recorded. Lab None recorded. Referral None recorded. Procedures None recorded. Surgeries carpal tunnel release (SURG) 025 025 [address] [place], [address], [place], [address], 5 16:56:44 carpal tunnel release (SURG) 024 024 kfountain 15 Not available 4 13:22:58 Imaging None recorded. Medication Orders None recorded. Patient TargetsNo targets recorded. Patient InstructionsNo instructions recorded. Reason for Referral None Reported. Procedures Surgical History Date Name Laterality Status Provider Name and Address Organization Details Recorded Time 5 Trigger Finger Kenalog Injection completed Kalpesh Ventura MD [address], [place], [address], [facility] 07/08/2025 15:47:42 Imaging Results None recorded. Procedure Notes None recorded. Medical Equipment None Reported. Allergies Allergen ID Allergen Name Allergen Category Reaction Reaction Severity Criticality Documentation Date Start Date Code Code System Note Provider Name and Address Organization Details Recorded Time 727469 shrimp allergeni c extract food Not available Not available Not available 07/04/2024 31844 2 RxNorm TREY sales, [facility] 4 14:22:12 147488 Substance with sulfonami de structure and antibacte rial mechanism of action (substanc e) medicatio n Not available Not available Not available 07/04/2024 56660 8003 SNOMED TREY sales, [facility] 4 14:22:20 Medications Name Sig Start Date Stop Date Status Note LastModified by Organization Details LastModified Time carisoprodol 350 mg tablet TAKE 1 TABLET BY MOUTH EVERY NIGHT AT BEDTIME NEEDED FOR NECK PAIN active Not Available Not Available No t Available amoxicillin 500 mg capsule TAKE 1 CAPSULE BY MOUTH 3 TIMES A DAY FOR 7 DAYS active Not Available Not Available N ot Available carvedilol 6.25 mg tablet TAKE 1 TABLET BY MOUTH TWICE A DAY active Not Available Not Available No t Available prednisone 10 mg tablet TAKE 1 TO 2 TABLETS BY MOUTH EVERY DAY NEEDED active Not Available Not Available No t Available atorvastatin 20 mg tablet TAKE 1 TABLET BY MOUTH EVERY DAY active Not Available Not Available No t Available tizanidine 2 mg tablet active Not Available Not Available No t Available tizanidine 4 mg tablet TAKE 1 TABLET BY MOUTH TWICE A DAY NEEDED MUSCLE SPASM X15 DAYS active Not Available Not Available No t Available allopurinol 100 mg tablet TAKE 1 TABLET BY MOUTH EVERY DAY active Not Available Not Available No t Available spironolacto ne 25 mg tablet TAKE 1 TABLET BY MOUTH EVERY DAY active Not Available Not Available No t Available oxycodone-ac etaminophen 5 mg-325 mg tablet TAKE 1 TABLET BY MOUTH EVERY 4 HOURS FOR 3 DAYS NEEDED FOR PAIN active Not Available Not Available No t Available lorazepam 0.5 mg tablet TAKE 1 TABLET BY MOUTH AT BEDTIME NEEDED active Not Available Not Available No t Available doxycycline monohydrate 100 mg capsule PLEASE SEE ATTACHED FOR DETAILED DIRECTIONS active Not Available Not Available N ot Available erythromycin 5 mg/gram (0.5 %) eye ointment TAKE 0.5 INCHES (OPHTHALMIC (EYE) - RIGHT) 2 TIMES PER DAY FOR 5 DAYS active Not Available Not Available No t Available losartan 25 mg tablet TAKE 1 TABLET BY MOUTH TWICE A DAY active Not Available Not Available No t Available mupirocin 2 % topical ointment APPLY TOPICALLY TO FOOT TWICE DAILY active Not Available Not Available Not Available gabapentin 100 mg capsule TAKE 3 CAPSULES BY MOUTH EVERY EVENING active Not Available Not Available No t Available methylpredni solone 4 mg tablets in a dose pack FOLLOW PACKAGE DIRECTIONS active Not Available Not Available N ot Available albuterol sulfate HFA 90 mcg/actuatio n aerosol inhaler INHALE 2 PUFFS BY MOUTH EVERY 4 TO 6 HOURS NEEDED FOR SHORTNESS OF BREATH AND OR WHEEZING active Not Available Not Available No t Available hydrocortiso ne 1 %-iodoquinol 1 % topical cream APPLY TO RASH ON THE ABDOMEN NEEDED active Not Available Not Available No t Available fluticasone propionate 50 mcg/actuatio n nasal spray,suspen oswald SPRAY 1 SPRAY INTO EACH NOSTRIL 2 TIMES PER DAY active Not Available Not Available No t Available amoxicillin 875 mg-potassium clavulanate 125 mg tablet TAKE 1 TABLET BY MOUTH TWICE DAILY FOR 7 DAYS active Not Available Not Available No t Available oxycodone 5 mg tablet TAKE 1 TABLET EVERY 4 HOURS BY ORAL ROUTE NEEDED FOR 1 DAY. active Not Available Not Available N ot Available cyclobenzapr ine 5 mg tablet active Not Available Not Available Not Available GaviLyte-G 236 gram-22.74 gram-6.74 gram-5.86 gram oral solution TAKE 4,000 ML BY MOUTH ONE TIME FOR 1 DOSE active Not Available Not Available N ot Available Paxlovid 300 mg (150 mg x 2)-100 mg tablets in a dose pack TAKE 3 TABLETS BY MOUTH TWICE A DAY FOR 5 DAYS DIRECTED active Not Available Not Available No t Available Vitals Date Recorded Body height Body mass index (BMI) Body weight Provider Name and Address Organization Details Last Updated DateTime 04/27/2025 160.02 cm 27.3 kg/m2 04267.22 g TREY VILLEGAS [facility] 04/27/2025 13:26:38 Date Recorded Body height Body mass index (BMI) Body weight Provider Name and Address Organization Details Last Updated DateTime 07/04/2024 160.02 cm 0.7 kg/m2 1814.37 g TREY VILLEGAS [facility] 07/04/2024 14:22:03 Date Recorded Body height Body mass index (BMI) Body weight Provider Name and Address Organization Details Last Updated DateTime 07/08/2025 160.02 cm 27.3 kg/m2 35704.22 g TREY VILLEGAS [place] [facility] 07/08/2025 14:14:52 Social History None recorded. Functional Status None recorded. Mental Status None recorded. Family History Nothing Reported. Medical History No medical history recorded. Gynecological HistoryNo gynecological history recorded. Obstetrics History GPAL:G 0 P 0 0 0 0 Past Encounters Encounter ID Performer Location Encounter Start Date Encounter Closed Date Diagnosis/Indication Diagnosis SNOMED-CT Code Diagnosis ICD10 Code Diagnosis IMO Codes Diagnosis Note [id number] [facility] [address] [address] [address] 07/04/2024 14:02:53 07/28/2024 17:57:31 Carpal tunnel syndrome of right wrist [id number] 75034 G56.01 Bilateral carpal tunnel syndrome 9060796857 [id number] G56.03 [id number] Samantha Stout, OTR/L,CHT [place] [address] 07/22/2024 10:27:54 07/22/2024 10:59:08 Carpal tunnel syndrome of right wrist [id number] 11673 G56.01 Upon welcoming the patient from the waiting room into the clinic, I am able to observe how the involved extremity is used functional ly. The patient demonstrat es light use of the surgical hand for such activities as gathering personal items, and adjusting the chair. The patient shared their personal experience over the last 2 weeks living with a postoperat swapnil hand and modifying activities around the house. Fluctuatio ns in pain levels and the use of medication is also reviewed. The postoperat swapnil dressing is removed. The surgical wound is inspected and found to be clean and dry. The edges of the incision are approximat ed with intact sutures. Patient has intact neurovascu lar structures with only slight tenderness at the incision. No surroundin g erythema, wound drainage, warmth or signs of infection. The patient states no pain when palpating around the surgical site and the surroundin g structures . The digits on the involved hand are able to demonstrat e a nearly full composite fist. Thumb is able to flex and oppose to the small finger. Digits are able to demonstrat e full extension/ hyperexten oswald to open and flatten the palm. The wrist has nearly full flexion /extension /circumduc tion range of motion. The patient is able to demonstrat e both tip, tripod, and lateral pinch. The thenar muscle shows slight atrophy. The distal sensation for light touch is assessed. The patient is able to demonstrat e a positive response to light touch. Postoperative care 28852 9007 Z48.89 Sutures are removed today without complicati on. Education regarding the involved anatomy and the surgical procedure was well received. Scar massage was demonstrat ed including a variety of movements to disperse the fibrotic tissue which, if untouched, would create a thickened area of scar. This is instructed with a handout given to the patient. Additional home exercises including tendon gliding and median nerve gliding were demonstrat ed in the office today with a handout also provided. A small amount of therapy putty was introduced and demonstrat ed with the correspond ing worksheet was provided as well. Further discussion about the MELT technique using a small ball for pillar pain with amalia dominguez was provided. Per the surgeon , since there are no wound care complicati ons or concerns, no follow up appointmen t needed. The patient has been educated with a significan t Home Exercise Program to be completed over the next 2 weeks. The patient was instructed to contact the office if there should arise any concerns with the surgical site or if there is not sufficient functional recovery. All questions, with regards to return to functional activities , are answered prior to leaving the office today. This office visit was complete at 30 minutes. [id number] MD KIM Millan [address] [address] 04/27/2025 13:13:39 05/07/2025 11:08:21 Carpal tunnel syndrome of left wrist [id number] 98993 G56.02 [id number] Samantha Stout OTR/L,CHT [facility] [address] [address] 05/21/2025 11:09:04 05/21/2025 12:05:52 Carpal tunnel syndrome of left wrist [id number] 10325 G56.02 [id number] This visit was completed today under the supervisio n of Dr. Ventura The postoperat swapnil dressing is removed. The surgical wound is inspected and found to be clean and dry. The edges of the incision are approximat ed with intact sutures. Patient has intact neurovascu lar structures with only slight tenderness at the incision. No surroundin g erythema, wound drainage, warmth or signs of infection. The patient states no pain when palpating around the surgical site and the surroundin g structures . The digits on the involved hand are able to demonstrat e a nearly full composite fist. Digits are able to demonstrat e full extension/ hyperexten oswald to open and flatten the palm. The wrist has nearly full flexion /extension /circumduc tion range of motion. The distal sensation for light touch is assessed. The patient is able to demonstrat e a positive response to light touch. Postoperative visit 4971 49056 Z48.89 [id number] Sutures are removed today without complicati on. Scar massage was reviewed Per the surgeon , since there are no wound care complicati ons or concerns, no follow up appointmen t needed. The patient was instructed to contact the office if there should arise any concerns with the surgical site or if there is not sufficient functional recovery. This office visit was complete at 15 minutes. [id number] MD KIM Millan [address] [address] 07/08/2025 13:58:29 07/16/2025 08:51:15 Flexor tenosynovitis of finger 578445273 M65.949 470183 Arthritis of first carpometacarpal joint of left hand 1210977343 710087 M18.12 [id number] Health Concerns Section Related Observation LastModified by Organization Detai ls LastModified Time None Recorded Concern Status LastModified by Organization Details LastModified Time None Recorded Advance Directives Directive None Recorded Payers Insurance Date Sequence Insurance Name Policy Number Policy Barbosa Covered Member ID Barbosa Member ID Guarantor Name 07/16/2025 2 [facility] IN[facility] (MEDICARE SUPPLEMENT) [id number] Chichi Franco [id number] Chichi Franco 07/08/2025 1 [place]IC[place] [employer] Chichi Franco [id number] Chichi Franco Notes Date Note Type Note Provider Name and Address Organization Details Recorded Time 07/04/2024 text/html ROS as noted in the HPI Diagnosis: Lateral carpal tunnel [id number] female who presents with a history of numbness and tingling in the thumb index and middle fingers of both hands. This developed after she fell down some stairs in October. She is found night splints to be helpful.Past family, medical, social history and review of systems has been reviewed, updated and is located in the patient s chart.Examination: Healthy appearing patient in no apparent distress. Alert and oriented.HEENT: Normocephalic and atraumatic.Heart: Regular rate and rhythm.Lungs: Clear to auscultation bilaterally.Abdomen: Soft and nontender.Neurovascula r exam: Films maneuver and carpal tunnel compression testing caused no change in constant numbness in her hand. Tinel signs are negative for bilateral carpal tunnels.Extremities: A symmetric range of motion of her bilateral wrists and digits. Provocative testing for some digits reveal no instability. No atrophy in either upper extremity. Brisk capillary refill in all digitsI reviewed an EMG/NCS obtained an outside institution. The findings were consistent with severe bilateral carpal tunnel syndromePlan:The patient and I discussed the situation at length. The patient's history, physical findings and electrodiagnostic studies are consistent with bilateral carpal tunnel syndrome. I described the nature of carpal tunnel syndrome and treatment options. The patient would like to proceed with a right carpal tunnel release. We discussed the nature of the surgery and potential risks including infection, injury to blood vessels, tendons, nerves, incomplete relief of numbness and palmar tenderness. Given the severity of her carpal tunnel syndrome, she is at high risk for incomplete relief of her numbness. All of the patient's questions were answered. We will perform the procedure at the patient's earliest possible convenience. Kalpesh Ventura MD [address], [place], [address], [facility] 07/04/2024 16:09:50 07/22/2024 text/html This is a 79-year-old woman who had the left carpal tunnel released by Dr. Ventura on 07/08/2024. She presents to the office today for the first postoperative hand therapy visit for a wound check, suture removal and advised on a home exercise program. Samantha Stout, OTR/L,CHT [address], [place], [address], [facility] 07/22/2024 10:58:58 04/27/2025 text/html ROS as noted in the HPI Diagnosis: Bilateral carpal tunnel syndrome status post right carpal tunnel release The patient presents at her request. She is very pleased with results of the surgery on the right. She is describing numbness tingling and pain in her left hand. She would like to discuss treatment options. Past family, medical, social history and review of systems has been reviewed, updated and is located in the patient s chart. Examination: Healthy appearing patient in no apparent distress. Alert and oriented. HEENT: Normocephalic and atraumatic. Heart: Regular rate and rhythm. Lungs: Clear to auscultation bilaterally. Abdomen: Soft and nontender. Neurovascular exam: Carpal tunnel compression testing is positive on the left. Extremities: She has symmetric range of motion of her bilateral wrist and digits. Provocative testing of wrist and digits reveal no instability. No atrophy in either upper extremity. Brisk capillary refill in all digits Plan: The patient and I discussed the situation at length. The patient's history, physical findings and electrodiagnostic studies are consistent with left carpal tunnel syndrome. I described the nature of carpal tunnel syndrome and treatment options. The patient would like to proceed with a left carpal tunnel release. We discussed the nature of the surgery and potential risks including infection, injury to blood vessels, tendons, nerves, incomplete relief of numbness and palmar tenderness. All of the patient's questions were answered. We will perform the procedure at the patient's earliest possible convenience. Kalpesh Ventura MD [address], [place], [address], [facility] 04/29/2025 07:47:14 05/21/2025 text/html This is a very pleasant 80-year-old woman who is well-known to me from having the same surgery on the contralateral side in June of last year. Recently with Dr. Ventura she had a carpal tunnel release on the left side on 05/08/2025. Today we will assess the surgery site and remove the sutures. I will also review her home program Samantha Stout, OTR/L,CHT [address], [place], [address], [facility] 05/21/2025 11:57:13 07/08/2025 text/html ROS as noted in the HPI Diagnosis: 1. Flexor tenosynovitis left small finger 2. Left first CMC arthritis 3. Status post left carpal tunnel The patient returns at her request. She reports that her numbness and tingling have resolved but she is concerned about pain at the base of her left thumb and painful triggering of her left small finger. Both of these began after her surgery. Past family, medical, social history and review of systems has been reviewed, updated and is located in the patient s chart. Examination: Healthy appearing patient in no apparent distress. Alert and oriented. She has symmetric range of motion of her bilateral wrist and digits. She has triggering of her left small finger with a tender nodule at the A1 yoana. Provocative testing the right wrist reveals no instability. Provocative testing the left wrist reveals a positive first CMC grind and compression test. No atrophy in either upper extremity. Brisk capillary refill in all digits X-rays ordered, obtained, and reviewed today at [facility]: PA and lateral of the left TM joint confirm joint space narrowing, sclerosis and osteophyte production. Plan: The patient and I reviewed her situation at length. For her flexor tenosynovitis I recommended a corticosteroid injection. She tolerated well. For her first CMC arthritis I recommend that we begin with a course of nonsteroidal anti-inflammatory medication. She is comfortable this plan. She will follow-up at her discretion. Kalpesh Ventura MD [address], [place], [address], [facility] 07/08/2025 15:48:17 OBGyn Episode No OBEpisode recorded.
--- OUTSIDE RECORDS SUMMARY | 2025-09-18 14:54 | XMS_ITS | Clinical Summary ---
Author Organization [facility] [address] [facility] Address [address] [place] [address] Phone Care Team Providers Care Outsole Paraffiner Name Role Phone JanabernardaVika Montero DO Primary Care Pro vider Allergies Active Allergy Reactions Criticality Noted Date Comments Cat Dander 12/09/2024 Cephalexin 05/22/2023 Other Reaction(s): flushed; bones ache Other reaction(s): flushed; bones ache Iodinated Contrast Media 12/09/2024 Iv contrast dye Lobster Nausea And Vomiting 08/06/2025 Shrimp 12/09/2024 Other Reaction(s): Not available Sulfa (Sulfonamide Antibiotics) Unknown 12/10/2018 Sulfa Drugs Medications albuterol sulfate (ProAir RespiClick) 90 mcg/actuation aerosol powdr breath activated Inhale into the lungs. Active allopurinoL (ZYLOPRIM) 100 mg tablet Take 100 mg by mouth daily. Active ascorbic acid (VITAMIN C) 1,000 mg tablet Take 1,000 mg by mouth daily. Active atorvastatin (LIPITOR) 20 mg tablet TAKE 1 TABLET BY MOUTH DAILY 3 Active B-complex with vitamin C (VITAMIN B COMPLEX WITH C ORAL) B Complex-C (Vitamin B + C Complex) Tab Take 1 Tablet by mouth daily. Active carvediloL (COREG) 6.25 mg tablet TAKE 1 TABLET BY MOUTH TWICE DAILY WITH MEALS 3 Active cholecalciferol (VITAMIN D-3) 50 mcg (2,000 unit) capsule Take by mouth. Activ e DICLOFENAC EPOLAMINE TD DICLOFENAC EPOLAMINE EX Apply topically at bedtime Active gabapentin (NEURONTIN) 300 mg capsule Take 300 mg by mouth at bedtime. Active LORazepam (ATIVAN) 0.5 mg tablet Take 0.5 Tablets by mouth daily as needed. Active losartan (COZAAR) 25 mg tablet Take 1 Tablet by mouth 2 times daily. 3 Active magnesium oxide 250 mg magnesium tablet Take by mouth. Activ e spironolactone (ALDACTONE) 25 mg tablet 1 tablet (25 mg total). 2 Active tiZANidine (ZANAFLEX) 2 mg capsule Take 1 Capsule by mouth 2 times daily. Active multivit-min/iro n/folic acid/K (ADULTS MULTIVITAMIN ORAL) Multiple Vitamin (MULTIVITAMIN ADULT) Tab Take 1 Tab by mouth Active cetirizine (ZyrTEC) 10 mg tablet Take 1 tablet (10 mg total) by mouth 1 (one) time each day. Active polyethylene glycol (Golytely) 236-22.74-6.74 -5.86 gram solution Take 4L by mouth once for one dose. May substitue any PEG. Starting at 2PM the day before your procedure drink 1 8oz glasses at your own pace until you complete half of the gallon. Finish 2nd half of the gallon at 8PM. 4000 mL 5 Active bisacodyL (DULCOLAX) 5 mg EC tablet Take 2 tablets by mouth right before beginning bowel prep. See instructions provided by the office 2 tablet 5 Active fluticasone propionate (FLONASE) 50 mcg/actuation nasal spray SPRAY 1 SPRAY INTO EACH NOSTRIL 2 TIMES PER DAY 1 Active hydrocortisone-i odoquinoL 1-1 % cream APPLY TO RASH ON THE ABDOMEN NEEDED 5 Active Active Problems Problem Noted Date Diagnosed Date Hematoma of left lower extremity 02/11/2025 Non-pressure chronic ulcer o f other part of left lower leg with fat layer exposed (CMS/HCC V24, CMS/HCC V28) 02/11/2025 Abrasion, left knee, subsequent encounter 2024 Non-pressure chronic ulcer o f skin of other sites with other specified severity (CMS/HCC V24, CMS/HCC V28) 02/11/2025 Cardiomyopathy ([facility] V24, [facility] V28) 2020 Overview (11/25/2024): LVEF 40-45% at the time of her stress echo Cardiac cath 01/2021 no obstructive coronary artery disease with only mid LAD 40% lesion Last Assessment & Plan: No significant change of left ventricular systolic function by echocardiogram. She is on low-dose losartan. I will increase to 25 mg twice a day. I asked her to contact her pharmacy to get estimate of cost of Entresto. If the cost is not prohibitive, will switch losartan to Entresto. I told her to increase carvedilol to 12.5 mg twice a day from previous visit but she has been taking just 6.25 mg twice a day. After she of switching losartan to Entresto, if her blood pressure remains in the normal range, could consider to increase carvedilol dosage. Mixed hyperlipidemia 08/10/2021 Overview (11/25/2024): Last Assessment & Plan: Well-controlled lipid profile without significant coronary artery disease. Continue statin at current dose. Update lipid profile with upcoming labs. Hypertension 02/04/2021 Overview (11/25/2024): Last Assessment & Plan: Slightly higher side. Hopeful medication adjustment will improve hypertension control. Chest pain 12/23/2020 Overview (11/25/2024): Last Assessment & Plan: Chest pain probably anxiety related. We will continue primary prevention. I also discussed with her about techniques to avoid anxiety attack. I will discontinue isosorbide. LBBB (left bundle branch block) 12/23/2020 Overview (11/25/2024): Last Assessment & Plan: We will continue monitor. Calculus of gallbladder with acute cholecystitis without obstruction 12/10/2018 Encounters Date Type Department Care Team Description 08/14/2025 Results Follow-Up Gastroenterology - [address] [place] [address] Kasia Sullivan MD 08/13/2025 12:07 PM EDT Anesthesia Event [facility] [address] [place] [phone] Jamie Herrera MD 08/13/2025 11:40 AM EDT - 08/13/2025 11:59 PM EDT Hospital Encounter [facility] [address] [place] [phone] Kasia Sullivan MD Saliga, Jesse L, MD Decandio, Laura, CRNA Adenomatous polyp of colon, unspecified part of colon; Family history of colon cancer Discharge Disposition: Home or Self Care from Last 3 Months Surgical History Surgery Date Site/Laterality Comments PARTIAL HYSTERECTOMY PROCEDURE: WY SUPRACERVICAL ABDL HYSTER W/WO RMVL TUBE OVARY OTHER SURGICAL HISTORY Bilateral PROCEDURE: HISTORY OTHER; COMMENT: Salpingoophorectomy CHOLECYSTECTOMY PROCEDURE: HISTORICAL CHOLECYSTECTOMY SPINAL FUSION CARDIAC CATH Medical History Medical History Date Comments GERD (gastroesophageal reflux disease) DX:GERD (gastroesophageal reflux disease) Anxiety DX:Anxiety SOB (shortness of breath) DX:SOB (shortness of breath) History of hypertension DX:Histo ry of hypertension; COMMENT: resolved after weight loss and dietary changes. Diverticulosis DX:Diverticulosi s; COMMENT: with history of diverticulitis Stress incontinence DX:Stress in continence Arthritis DX:Arthritis Neuropathy DX:Neuropathy Gout DX:Gout LBBB (left bundle branch block) Family History Medical History Relation Name Comments Cancer Daughter Cancer Father Other: cancer of bone Father Heart disease Maternal Grandfather Heart disease Maternal Grandmother Cancer Mother Diabetes Mother Hypertension Mother Other: Cancer of rectal in her 80's Mother Heart disease Paternal Grandfather Cancer Paternal Grandmother Relation Name Status Comments Daughter Father Maternal Grandfather Maternal Grandmother Mother Paternal Grandfather Paternal Grandmother Social History Tobacco Use Types Packs/Day Years Used Date Smoking Tobacco: Former Smokeless Tobacco: Never Tobacco Cessation:Counseling Given: Not Answered Comments:Quit 43 years ago Alcohol Use Standard Drinks/Week Comments Not Currently 0 (1 standard drink = 0.6 oz pur e alcohol) Interpersonal Safety Answer Date Record ed Physical Abuse Unrecognized value 08/13/2025 Verbal Abuse Unrecognized value 08/13/2025 Comments No Sex and Gender Information Value Date Recorded Sex Assigned at Female 08/10/2025 4:30 PM EDT Legal Sex Female 5:43 PM EST Gender Identity Female 08/10/2025 4:30 PM EDT Sexual Orientation Not on file Obstetrics History Last Filed Vital Signs Vital Sign Reading Time Taken Comments Blood Pressure 123/53 08/13/2025 12:56 PM EDT Pulse 76 08/13/2025 12:56 PM EDT Temperature 36.8 C (98.3 F) 08/13/2025 12:36 PM EDT Respiratory Rate 16 08/13/2025 12:56 PM EDT Oxygen Saturation 98% 08/13/2025 12:56 PM EDT Inhaled Oxygen Concentration - - Weight 68 kg (150 lb) 08/13/2025 11:57 AM EDT Height 160 cm (5' 3 ) 08/13/2025 11:57 AM EDT Body Mass Index 26.57 08/13/2025 11:57 AM EDT Plan of Treatment Health Maintenance Due Date Last Done Comments MMR Vaccines (1 of 2 - Risk 2-dose series) 1963 Zoster Vaccines (1 of 2) 1964 IPV Vaccines (2 of 3 - Adult catch-up series) 01/20/2008 12/23/2007 Meningococcal ACWY Vaccine (1 - Risk start 2-23 months series) 03/16/2008 01/20/2008 Hepatitis A Vaccines (3 of 3 - Hep A Twinrix risk 3-dose series) 06/22/2008 01/20/2008, 12/23/2007 Hepatitis B Vaccines (3 of 3 - Hep B Twinrix risk 3-dose series) 06/22/2008 01/20/2008, 12/23/2007 Cholesterol Screening (Lipid Panel) 10/07/2022 Hepatitis C Screening 10/07/2022 Medicare Annual Wellness Visit 10/07/2022 Osteoporosis Screening (Bone Density Screening) 10/07/2022 Social Influencers of Health Screening 10/07/2022 Hypertension/CHF/CAD Annual BMP Blood Test 10/08/2022 COVID-19 Vaccine ( season) 2025 10/14/2021, 01/21/2021, 12/31/2020 Influenza Vaccine (#1) 2025 , 08/15/2023, 08/07/2022, Additional history exists Falls Risk Assessment 08/13/2026 08/13/2025 DTaP,Tdap,and Td Vaccines (3 - Td or Tdap) 01/12/2035 01/12/2025, 06/19/2022 Pneumococcal Vaccine: 50+ Years Completed 08/15/2023, 09/16/2011 RSV Immunization Adult Patients Completed 09/12/2024 Depression Screening Completed 02/11/2025 HIB Vaccines Aged Out No longer eligi ble based on patient's age to complete this topic HPV Vaccines Aged Out No longer eligi ble based on patient's age to complete this topic Meningococcal B Vaccine Aged Out No l onger eligible based on patient's age to complete this topic RSV Immunization Patients Under 20 months Aged Out No longer eligible based on patient's age to complete this topic Varicella Vaccines Aged Out No longer eligible based on patient's age to complete this topic Goals Goal Patient Goal Type Associated Problems Recent Progress Patient-Stated? Author Wound volume breakdown reduced by X% by week 4 Care Plan Impaired Tissue No Fabiana Warner RN Wound volume breakdown reduced by X% by week 8 Care Plan Impaired Tissue No Fabiana Warner RN Wound volume breakdown reduced by X% by week 12 Care Plan Impaired Tissue No Fabiana Warner RN Quit using tobacco (cigarettes, smokeless, etc) Care Plan Education needed on impact of smoking on wound Fabiana Mario RN Reduce tobacco use (cigarettes, smokeless, etc) Care Plan Education needed on impact of smoking on wound Fabiana Mario RN Decrease Wound Volume by X% by date (in notes) Care Plan Education needed on impact of smoking on wound Fabiana Mario RN Patient and Caregiver Understand Wound Care Education Care Plan Education needed related to ulceration/compro mised skin integrity. No Fabiana Warner RN Autogenerated Goal Care Plan Autogenerated Problem No Tanya Courtney Procedures Procedure Name Priority Date/Time Associated Diagnosis Comments COLONOSCOPY Routine 08/13/2025 12:35 PM EDT Adenomatous polyp of colon, unspecified part of colon Family history of colon cancer TISSUE EXAM Routine 08/13/2025 12:27 PM EDT Adenomatous polyp of colon, unspecified part of colon Family history of colon cancer from Last 3 Months Results * COLONOSCOPY Anesthesia - MAC; [facility] END[facility]COPY (08/13/2025 12:35 PM EDT) Anatomical Region Laterality Modality Endoscopy 08/13/2025 12:1 0 PM EDT Impressions 08/13/2025 12:38 PM EDT - The examined portion of the ileum was normal. - One 2 mm polyp at the hepatic flexure, removed with a cold snare. Resected and retrieved. - Two 1 to 2 mm polyps in the descending colon, removed with a cold snare. Resected and retrieved. - Two 2 mm polyps in the sigmoid colon, removed with a cold snare. Resected and retrieved. - Diverticulosis in the sigmoid colon. - Internal hemorrhoids. Recommendation: - Await pathology results. - Repeat colonoscopy for surveillance based on pathology results. Narrative 08/13/2025 12:[address] [facility] GI Patient Name: Chichi Franco Procedure Date: 08/13/2025 12:10 PM Date of : 1945 Age: 80 Gender: Female Note Status: Finalized Attending MD: Kasia Sullivan MD, Procedure Date No Time: 08/13/2025 Procedure: Colonoscopy Indications: Screening in patient at increased risk: Family history of 1st-degree relative with colorectal cancer Providers: Kasia Sullivan MD Referring MD: Vika mccormack DO Medicines: Propofol per Anesthesia Complications: No immediate complications. Estimated Blood Loss: Estimated blood loss: none. Procedure: Pre-Anesthesia Assessment: - ASA Grade Assessment: III - A patient with severe systemic disease. After I obtained informed consent, the scope was passed under direct vision. Throughout the procedure, the patient's blood pressure, pulse, and oxygen saturations were monitored continuously.The Colonoscope was introduced through the anus and advanced to the terminal ileum. The colonoscopy was performed without difficulty. The patient tolerated the procedure well. The quality of the bowel preparation was good. Findings: The perianal and digital rectal examinations were normal. The terminal ileum appeared normal. A 2 mm polyp was found in the hepatic flexure. The polyp was sessile. The polyp was removed with a cold snare. Resection and retrieval were complete. Two sessile polyps were found in the descending colon. The polyps were 1 to 2 mm in size. These polyps were removed with a cold snare. Resection and retrieval were complete. Two sessile polyps were found in the sigmoid colon. The polyps were 2 mm in size. These polyps were removed with a cold snare. Resection and retrieval were complete. Multiple small-mouthed diverticula were found in the sigmoid colon. Internal hemorrhoids were found during retroflexion. The hemorrhoids were Grade I (internal hemorrhoids that do not prolapse). Procedure Code(s): --- Professional --- 94543, Colonoscopy, flexible; with removal of tumor(s), polyp(s), or other lesion(s) by snare technique Diagnosis Code(s): --- Professional --- Z80.0, Family history of malignant neoplasm of digestive organs D12.3, Benign neoplasm of transverse colon (hepatic flexure or splenic flexure) D12.4, Benign neoplasm of descending colon D12.5, Benign neoplasm of sigmoid colon CPT copyright 2020 [employer]. All rights reserved. The codes documented in this report are preliminary and upon power plant electrician review may be revised to meet current compliance requirements. Kasia Sullivan MD 08/13/2025 12:37:57 PM This report has been signed electronically.Kasia Sullivan MD Number of Addenda: 0 Note Initiated On: 08/13/2025 12:10 PM Scope In: Scope Out: Endoscopy Department at [facility] - [address] [place] [id number] Procedure Note Kasia Sullivan MD - 08/13/2025 [facility] GI Patient Name: Chichi Franco Procedure Date: 08/13/2025 12:10 PM Date of : 1945 Age: 80 Gender: Female Note Status: Finalized Attending MD: Kasia Sullivan MD, Procedure Date No Time: 08/13/2025 Procedure: Colonoscopy Indications: Screening in patient at increased risk: Familyhistory of 1st-degree relative with colorectal cancer Providers: Kasia Sullivan MD Referring MD: Vika mccormack DO Medicines: Propofol per Anesthesia Complications: No immediate complications. Estimated Blood Loss: Estimated blood loss: none. Procedure: Pre-Anesthesia Assessment: - ASA Grade Assessment: III - A patient with severe systemic disease. After I obtained informed consent, the scope was passed under direct vision. Throughout theprocedure, the patient's blood pressure, pulse, and oxygen saturations were monitored continuously.The Colonoscope was introduced through the anus and advanced to the terminal ileum. The colonoscopy was performed without difficulty. The patient tolerated the procedure well. The quality of the bowel preparation was good. Findings: The perianal and digital rectal examinations were normal. The terminal ileum appeared normal. A 2 mm polyp was found in the hepatic flexure. The polyp was sessile. The polyp was removed with acold snare. Resection and retrieval were complete. Two sessile polyps were found in the descendingcolon. The polyps were 1 to 2 mm in size. These polypswere removed with a cold snare. Resection and retrieval were complete. Two sessile polyps were found in the sigmoid colon. The polyps were 2 mm in size. These polyps were removed with a cold snare. Resection and retrieval were complete. Multiple small-mouthed diverticula were found inthe sigmoid colon. Internal hemorrhoids were found duringretroflexion. The hemorrhoids were Grade I (internal hemorrhoids that do not prolapse). Procedure Code(s): --- Professional --- 11569, Colonoscopy, flexible; with removal of tumor(s), polyp(s), or other lesion(s) by snare technique Diagnosis Code(s): --- Professional --- Z80.0, Family history of malignant neoplasm of digestive organs D12.3, Benign neoplasm of transverse colon (hepatic flexure or splenic flexure) D12.4, Benign neoplasm of descending colon D12.5, Benign neoplasm of sigmoid colon CPT copyright 2020 [employer]. All rights reserved. The codes documented in this report are preliminary and upon power plant electrician reviewmay be revised to meet current compliance requirements. Kasia Sullivan MD 08/13/2025 12:37:57 PM This report has been signed electronically.Kasia Sullivan MD Number of Addenda: 0 Note Initiated On: 08/13/2025 12:10 PM Scope In: Scope Out: Endoscopy Department at [facility] - [address] [place] [phone] IMPRESSION: - The examined portion of the ileum was normal. - One 2 mm polyp at the hepatic flexure, removedwith a cold snare. Resected and retrieved. - Two 1 to 2 mm polyps in the descending colon, removed with a cold snare. Resected andretrieved. - Two 2 mm polyps in the sigmoid colon, removedwith a cold snare. Resected and retrieved. - Diverticulosis in the sigmoid colon. - Internal hemorrhoids. Recommendation: - Await pathology results. - Repeat colonoscopy for surveillance based on pathology results. us Kasia Sullivan MD GI~PROCEDURE ORDERABLES Final Result * Tissue exam (08/13/2025 12:27 PM EDT) Final Diagnosis A. Large intestine, Hepatic flexure, polyp: - Tubular adenoma. B. Large Intestine, Left/Descending Colon, polyps x2: - Hyperplastic polyp. C. Large Intestine, Sigmoid Colon, polyps x 2: - Tubular adenomas x2. 08/14/2025 12:47 PM EDT [facility] LAB at 1247 EDT Gross Description A. Large intestine, Hepatic flexure, polyp: Labeled polyp hepatic flex . Received in formalin are two soft, mccormick to pink polypoid tissue with minimal attached fecal/food debris measuring 0.15 cm and 0.25 cm in greatest diameter, with minimal attached fecal/food debris, which are wrapped in paper and submitted in toto in one cassette, two pieces, multiple levels. B. Large Intestine, Left/Descending Colon, polyps x2: Labeled polyps x 2 desc colon . Received in formalin is a soft, mccormick, 0.15 cm in greatest diameter polypoid tissue and minimal fecal/food debris, which is inked blue, wrapped in paper and submitted in toto in one cassette, one + multiple pieces, multiple levels. C. Large Intestine, Sigmoid Colon, polyps x 2: Labeled polyps x 2 Sig colon . Received in formalin are four soft, mccormick, polypoid tissue ranging from 0.2 cm to 0.3 cm in greatest diameter, which are wrapped in paper and submitted in toto in one cassette, four pieces, multiple levels. TS 08/14/2025 12:47 PM EDT [facility] Disclaimer Unless otherwise specified, all tissue is 10% NB formalin fixed and paraffin embedded. 08/14/2025 12:47 PM EDT [facility] Tissue Structure of right colic flexure / Unknown 08/13/2025 12:27 PM EDT 08/13/2025 1:55 PM EDT Tissue specimen (specimen) Descending colon structure / Unknown 08/13/2025 12:27 PM EDT 08/13/2025 1:55 PM EDT Tissue specimen (specimen) Sigmoid colon structure / Unknown 08/13/2025 12:29 PM EDT 08/13/2025 1:55 PM EDT us Kasia Sullivan MD LAB PATHOLOGY ORDERABLES Final Result [facility] [address] [place] [address], from Last 3 Months Additional Health Concerns Active Problems Noted Date Diagnosed Date Impaired Tissue 02/12/2025 Education needed on impact of smoking on wound 0 02/12/2025 Education needed related to ulceration/compromised skin integrity. 02/12/2025 Autogenerated Problem 07/27/2025 Insurance MEDICARE [facility] Care Teams Outsole Paraffiner Relationship Specialty Start Date End Date Vika Carreno DO [address] [phone] PCP - General Internal Medicine 12/09/24
--- OUTSIDE RECORDS SUMMARY | 2025-09-18 14:54 | XMS_ITS | Clinical Summary ---
Author Organization [facility] Address [address] [place] [phone] Phone Care Team Providers Care Inspector Filter Tip Name Role Phone Vika Carreno DO Primary Car e Provider Allergies Active Allergy Reactions Criticality Noted Date Comments Cat Hair Std Allergenic Ext 09/10/20 24 Cephalexin 05/22/2023 Other reaction(s): flushed; bones ache Iodinated Contrast Media 05/22/2023 Shrimp 11/03/2024 Sulfa (Sulfonamide Antibiotics) Unknown 05/22/2023 Medications spironolactone (ALDACTONE) 25 MG tablet Take 25 mg by mouth. 04/13/20 Active losartan (COZAAR) 25 MG tablet Take 1 tablet by mouth 2 (two) times a day. 04/20/20 Active atorvastatin (LIPITOR) 20 MG tablet Take 20 mg by mouth. 04/13/20 Active allopurinol (ZYLOPRIM) 100 MG tablet Take 1 tablet by mouth every morning. 03/30/20 Active cholecalciferol, vitamin D3, (VITAMIN D3) 25 mcg (1,000 unit) capsule See Instructions, 4,000 IU daily, 0 Refills, Maintenance, 12/14/22 11:38:00 EST, Partial fill upon patient request if the prescription is for a schedule II opioid drug. 12/14/19 Active ascorbic acid, vitamin C, 500 mg TbER Take 500 mg by mouth. 12/14/19 Active vitamin B complex TbER See Instructions, Vitamin B complex 50, 0 Refills, Maintenance, 12/14/22 11:40:00 EST, Partial fill upon patient request if the prescription is for a schedule II opioid drug. 12/14/19 23 Active LORazepam (ATIVAN) 0.5 MG tablet Take 0.25 mg by mouth daily as needed. Active carvedilol (COREG) 6.25 MG tablet Take 1 tablet by mouth 2 (two) times a day. 11/17/19 24 Active methyl salicylate/menth/c amph (SALONPAS TP) Apply topically. For feet Active gabapentin (NEURONTIN) 100 MG capsuleIndications :Primary osteoarthritis involving multiple joints,Neuropathy take 3 caps nightly 270 capsule 2 03/05/20 25 Active Additional Information Patient taking differently: take 2 caps nightly, Reported on 07/16/2025 Active Problems Problem Noted Date Diagnosed Date Trochanteric bursitis of left hip 11/03/2024 Assessment & Plan (11/03/2024 10:37 AM EST): Procedure: After an informed written consent, under sterile conditions using Ethyl chloride spray for local anesthesia I have injected 40 mg Kenalog and 2 cc 1% Lidocaine into Left trochanteric bursa uneventfully. Details of post-procedure care were explained to the patient in the office and given in writing. Provider: Erlinda Lizama MD Patient: Chichi Franco : 1945 Date: 11/03/2024 On allopurinol therapy 09/10/2024 Assessment & Plan (07/16/2025 4:17 PM EDT): Monitor for unusual skin rashes or discoloration, abdominal pain, nausea, unusual weakness etc. Continue proper hydration and low purine diet. Return for periodic monitoring labs-orders in [facility]. Assessment & Plan (03/05/2025 11:26 AM EDT): Monitor for unusual skin rashes or discoloration, abdominal pain, nausea, unusual weakness etc. Continue proper hydration and low purine diet. Return for periodic monitoring labs-orders in [facility]. Assessment & Plan (11/03/2024 10:15 AM EST): Monitor for unusual skin rashes or discoloration, abdominal pain, nausea, unusual weakness etc. Continue proper hydration and low purine diet. Return for periodic monitoring labs-orders in [facility]. Assessment & Plan (10/10/2024 11:33 AM EST): Monitor for unusual skin rashes or discoloration, abdominal pain, nausea, unusual weakness etc. Continue proper hydration and low purine diet. Return for periodic monitoring labs-orders in [facility]. Osteopenia of multiple sites 09/10/2024 Assessment & Plan (07/16/2025 4:17 PM EDT): Continue proper calcium vitamin D supplementation, fall and fracture prevention strategies in addition to daily weightbearing exercises 45-60 minutes. I reviewed with her need for limited use of prednisone due to risk of accelerated progression to osteoporosis bony fractures. Assessment & Plan (03/05/2025 11:26 AM EDT): Continue proper calcium vitamin D supplementation, fall and fracture prevention strategies in addition to daily weightbearing exercises 45-60 minutes. I reviewed with her need for limited use of prednisone due to risk of accelerated progression to osteoporosis bony fractures. Assessment & Plan (11/03/2024 10:15 AM EST): Continue proper calcium vitamin D supplementation, fall and fracture prevention strategies in addition to daily weightbearing exercises 45-60 minutes. I reviewed with her need for limited use of prednisone due to risk of accelerated progression to osteoporosis bony fractures. Assessment & Plan (10/10/2024 11:34 AM EST): Continue proper calcium vitamin D supplementation, fall and fracture prevention strategies in addition to daily weightbearing exercises 45-60 minutes. I reviewed with her need for limited use of prednisone due to risk of accelerated progression to osteoporosis bony fractures. On statin therapy 09/10/2024 Assessment & Plan (07/16/2025 4:17 PM EDT): Monitor for muscle tenderness, swelling and weakness Assessment & Plan (09/10/2024 3:41 PM EST): Monitor for muscle tenderness, swelling and weakness Trapezius muscle spasm 09/16/2023 Assessment & Plan (01/16/2024 10:39 AM EDT): Chronic trapezius muscle spasm. She is working with physical therapy to stretch the muscle and maintain her range of motion. 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 She takes cyclobenzaprine only as needed. Hip instability, left 06/22/2023 Assessment & Plan (06/22/2023 12:32 PM EDT): She has bilateral hip instability and weakness, more on the left. She does not have a bursitis even though the area is painful. She will continue with physical therapy and have them work on strengthening her pelvic muscles and improving her gait. Primary osteoarthritis involving multiple joints 06/22/2023 Assessment & Plan (07/16/2025 4:16 PM EDT): Joint protection, energy conservation. Use warm packs prior to gentle, regular exercise routine. Avoid falls, injuries, overuse. Keep body weight in ideal range for tanya height. She may benefit from topical cream such as Arnica, Biofreeze, Aspercreme versus medicated patches such as salonpas, icy hot patch 2-3 times daily and if necessary at bedtime x 3 weeks. Okay to take Tylenol 650 mg up to 3 times daily as needed and minimize prednisone use due to multiple risks associated with long-term use including but not limited to bone increased risk of osteoporosis, infection, accelerated rate of cataracts and glaucoma, diabetes, hypertension etc. Call if problems or questions. Assessment & Plan (03/05/2025 11:26 AM EDT): Joint protection, energy conservation. Use warm packs prior to gentle, regular exercise routine. Avoid falls, injuries, overuse. Keep body weight in ideal range for tanya height. She may benefit from topical cream such as Arnica, Biofreeze, Aspercreme versus medicated patches such as salonpas, icy hot patch 2-3 times daily and if necessary at bedtime x 3 weeks. Okay to take Tylenol 650 mg up to 3 times daily as needed and minimize prednisone use due to multiple risks associated with long-term use including but not limited to bone increased risk of osteoporosis, infection, accelerated rate of cataracts and glaucoma, diabetes, hypertension etc. Call if problems or questions. Assessment & Plan (11/03/2024 10:14 AM EST): Joint protection, energy conservation. Use warm packs prior to gentle, regular exercise routine. Avoid falls, injuries, overuse. Keep body weight in ideal range for tanya height. She may benefit from topical cream such as Arnica, Biofreeze, Aspercreme versus medicated patches such as salonpas, icy hot patch 2-3 times daily and if necessary at bedtime x 3 weeks. Okay to take Tylenol 650 mg up to 3 times daily as needed and minimize prednisone use due to multiple risks associated with long-term use including but not limited to bone increased risk of osteoporosis, infection, accelerated rate of cataracts and glaucoma, diabetes, hypertension etc. Call if problems or questions. Assessment & Plan (10/10/2024 11:31 AM EST): Joint protection, energy conservation. Use warm packs prior to gentle, regular exercise routine. Avoid falls, injuries, overuse. Keep body weight in ideal range for tanya height. She may benefit from topical cream such as Arnica, Biofreeze, Aspercreme versus medicated patches such as salonpas, icy hot patch 2-3 times daily and if necessary at bedtime x 3 weeks. Okay to take Tylenol 650 mg up to 3 times daily as needed and minimize prednisone use due to multiple risks associated with long-term use including but not limited to bone increased risk of osteoporosis, infection, accelerated rate of cataracts and glaucoma, diabetes, hypertension etc. Call if problems or questions. Assessment & Plan (06/02/2024 8:06 PM EDT): Osteoarthritis in multiple joints with stiffness but no swelling. She can continue with Tylenol 650 mg as needed and use prednisone only as needed for acute flares. Advised continued trapezius stretching exercises to prevent trapezius muscle spasm. Gave her an intramuscular injection of triamcinolone 80 mg to relieve her symptoms which last several months. Assessment & Plan (01/16/2024 10:38 AM EDT): Osteoarthritis in multiple joints with stiffness but no swelling. Advised to do daily stretching exercises specifically for her cervical spine to maintain her range of motion. She can take Tylenol 650 mg as needed. Gave her an intramuscular injection of triamcinolone 60 mg to help relieve her stiffness and pain. Assessment & Plan (09/16/2023 3:51 PM EST): Osteoarthritis in multiple joints with increase in stiffness. She can continue with Tylenol 650 mg as needed. Gave her an intramuscular injection of triamcinolone 60 mg which relieves all of her symptoms for several months. Assessment & Plan (06/22/2023 12:31 PM EDT): Osteoarthritis in multiple areas with no swelling. She can take Tylenol 650 as needed for pain. 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 Assessment & Plan (03/05/2025 11:26 AM EDT): Keep well-hydrated, continue low purine diet and daily allopurinol as prescribed. Assessment & Plan (11/03/2024 10:15 AM EST): Keep well-hydrated, continue low purine diet and daily allopurinol as prescribed. Assessment & Plan (10/10/2024 11:31 AM EST): Keep well-hydrated, continue low purine diet and daily allopurinol as prescribed. Assessment & Plan (06/02/2024 8:07 PM EDT): Chronic gout well-controlled on allopurinol with no recent flares. Assessment & Plan (01/16/2024 10:37 AM EDT): Chronic gout well-controlled on allopurinol daily. She has not had any recent flares. Assessment & Plan (09/16/2023 3:50 PM EST): Chronic gout well-controlled on daily allopurinol with no recent flares. Continue with the same dose of medication. Assessment & Plan (06/22/2023 12:30 PM EDT): Chronic gout well-controlled on allopurinol 100 mg daily with no recent flares. I do not believe the right big foot ulcer is related to gout. Neuropathy 06/22/2023 Assessment & Plan (07/16/2025 5:53 PM EDT): Admits to chronic neuropathy affecting mostly feet at night and partially responsive to gabapentin 200 mg nightly. She could not tolerate higher dose of gabapentin that made her too drowsy in the morning. Assessment & Plan (04/05/2025 3:23 PM EDT): Admits to chronic neuropathy affecting mostly feet at night and responsive to gabapentin 300 mg nightly. Assessment & Plan (01/16/2024 10:38 AM EDT): Chronic neuropathy in the feet most symptomatic at night. Continue with gabapentin 200 mg at night. Assessment & Plan (09/16/2023 3:51 PM EST): Chronic idiopathic peripheral neuropathy in both feet currently stable on gabapentin at night. Assessment & Plan (06/22/2023 12:33 PM EDT): Chronic peripheral neuropathy mainly in both feet well-controlled on 200 mg of gabapentin at night. Encounters Date Type Department Care Team Description 07/16/2025 4:00 PM EDT Office Visit [facility] Rheumatology [address] [place] [address] Erlinda Lizama MD Primary osteoarthritis involving multiple joints (Primary Dx); Idiopathic chronic gout of multiple sites without tophus; Osteopenia of multiple sites; On allopurinol therapy; On statin therapy; Neuropathy from Last 3 Months Social History Tobacco Use Types Packs/Day Years Used Date Smoking Tobacco: Former Cigarettes 1 9 1 975 - 1984 Smokeless Tobacco: Never Alcohol Use Standard Drinks/Week Comments Not Currently 0 (1 standard drink = 0.6 oz pur e alcohol) only 3 drinks yearly Education Answer Date Recorded Are you interested in more education? Not on jessica e 05/15/2023 Are you concerned about learning? Not on file 05/15/2023 No 05/15/2023 No 05/15/2023 Digital Access Answer Date Recorded No 05/15/2023 No 05/15/2023 Reliable internet access at home? Not on file 05/15/2023 Device with a working camera? Not on file Comments Unknown Sex and Gender Information Value Date Recorded Sex Assigned at Not on file Legal Sex Female 4:04 PM EDT Gender Identity Not on file Sexual Orientation Not on file Last Filed Vital Signs Vital Sign Reading Time Taken Comments Blood Pressure 110/68 07/16/2025 4:10 PM EDT Pulse 70 07/16/2025 4:10 PM EDT Temperature - - Respiratory Rate - - Oxygen Saturation 97% 07/16/2025 4:10 PM EDT Inhaled Oxygen Concentration - - Weight 68.2 kg (150 lb 6.4 oz) 07/16/2025 4:10 P M EDT Height 158.3 cm (5' 2.32 ) 07/16/2025 4:10 PM ED T Body Mass Index 27.22 07/16/2025 4:10 PM EDT Plan of Treatment Upcoming Encounters Date Type Department Care Team (Late st Contact Info) Description 11/20/2025 10:30 AM EST Office Visit [facility] Rheumatology [address] [place] [address] Erlinda Lizama MD [address] [facility], [address] [place] [address] [email or web address] Health Maintenance Due Date Last Done Comments LIPID PANEL 1945 POTASSIUM LEVEL 1945 DEPRESSION SCREENING 1958 HEPATITIS C SCREENING 1964 ZOSTER VACCINES (1 of 2) 1996 OSTEOPOROSIS SCREENING INITIAL (ONE-TIME) 2011 INFLUENZA VACCINE (#1) 2025 4, 08/15/2023, 08/07/2022, Additional history exists COVID-19 VACCINE (2024- season) 2025 10/14/2021, 01/21/2021, 01/21/2021, Additional history exists CREATININE LEVEL 04/23/2026 04/23/2025 Adult Td,Tdap Booster 01/12/2035 01/12/2025, 022 HEPATITIS A VACCINES Aged Out 01/20/2008, 12/23/19 08 No longer eligible based on patient's age to complete this topic MENINGOCOCCAL VACCINES (ACWY) Aged Out 01/20/2008 No longer eligible based on patient's age to complete this topic PNEUMOCOCCAL VACCINES (50+ years) Completed 08/15/2023, 09/16/2011 RSV VACCINE Completed 09/12/2024 SMOKING STATUS SCREENING (Once After 26 Yrs) Completed 07/16/2025 HIB VACCINES Aged Out No longer eligi ble based on patient's age to complete this topic MENINGOCOCCAL VACCINES (B) Aged Out N o longer eligible based on patient's age to complete this topic Medical Devices Not on file Procedures Procedure Name Priority Date/Time Associated Diagnosis Comments COMPREHENSIVE METABOLIC PANEL (CMP) Routine 04/23/2025 10:59 AM EDT 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 On allopurinol therapy from Last 3 Months or Most Recently Relevant to Health Maintenance Results * Comprehensive metabolic panel (04/23/2025 10:59 AM EDT) Blood us Erlinda Lizama MD LAB BLOOD BKR ORDERABLES Final Result EXTERNAL NON-INTERFACED REF LAB from Last 3 Months or Most Recently Relevant to Health Maintenance Insurance MEDICARE PART A & B [employer] MEDICARE SUPPLEMENT MEDICARE PART A & B [employer] MEDICARE SUPPLEMENT MEDICARE PART A & B [employer] MEDICARE SUPPLEMENT MEDICARE PART A & B [employer] MEDICARE SUPPLEMENT MEDICARE PART A & B [employer] MEDICARE SUPPLEMENT MEDICARE PART A & B [employer] MEDICARE SUPPLEMENT Care Teams Inspector Filter Tip Relationship Specialty Start Date End Date Vika Carreno DO [address] [place] [address] PCP - General Internal Medicine 05/15/23 Additional Source Comments The information contained in this document represents components of the legal health record. It is not the complete legal health record.[facility]
--- OUTSIDE RECORDS SUMMARY | 2025-09-18 14:55 | XMS_ITS | Patient Health Record ---
Author Organization [facility] Address [address], [place] [id number] Care Team Providers Care Customer Service Correspondence Clerk Name Role Phone DWIGHT RAMOS Primary Care Provide r [phone] RICKY CRUMP Unavailable [phone] BEATRIZ VELASQUEZ Unavailable [phone] ALLERGIES Allergen (clinical drug ingredient) Drug/Non Drug Allergy documented on EMR Reaction Allergy Type Onset Date Status IVP DYE (uncoded) hives Allergy Ac tive Cat dander Cat Dander Unknown Allergy Active Substance with sulfonamide structure and antibacterial mechanism of action (substance) Sulfa Antibiotics anaphylaxis Drug Allergy Active REASON FOR REFERRAL Reason (3)10/03/24 w appt ( 2)eval and tx , injection of trochanteric bursitis Diagnosis 1 Trochanteric bursiti s, unspecified laterality (M70.60) Referral Organization [facility] Referring Provider First Name DWIGHT Referring Provider Last Name URSULA ROMAN Referring Provider Speciality Internal M edicine Referred Organization [facility] Referred Address [address] [place] [address],[place], [place],[id number] Referred Provider Specialty Physiatry General Notes Krystal KELLY Call Ce nter 10/03/2024 10:10:43 AM >Pt asking for [facility] referral to be sent, see message started., Mar KELLY Admin 10/03/2024 04:03:50 PM > faxed medical referral and notes to , [facility] at [phone] Karen M Call Center 10/20/2024 01:35:24 PM >Pt called, she spoke to [facility] who gave correct fax: [phone], see message started., Vernell KELLY Referrals 10/23/2024 03:27:29 PM > noted referral has been refaxed to [facility] at [phone] Clinical Notes DWIGHT RAMOS 12/19/2024 08:42:18 AM >pt seen changed to addressed Referral Priority Urgent Reason PT eval and treat pe lvis/si Diagnosis 1 Trochanteric bursiti s of left hip (M70.62) Referral Organization [facility] Referring Provider First Name DWIGHT Referring Provider Last Name URSULA ROMAN Referring Provider Speciality Internal M edicine Referred Organization [facility] Referred Provider CHANO HIDALGO Referred Address [address] [place] [id number], Referred Provider Specialty Physical The rapy General Notes Sahara KELLY [place] 11/29 12:52:18 PM > SI dysfunction. GT bursitis/IT band syndrome. Two times per week for 2-6 weeks. Modalities, stretching, manual techniques regarding sr joint mobilization, alignment, myofascial release, progression through pelvic and hip girdle strengthening/stabilization. , Chano Hidalgo, [id number], [facility], [address] [place] [address], p [phone], f [phone] Referral Priority Routine Reason wound care at [facility] (2)(01/26/25 W appt) Diagnosis 1 Noninfected skin tea r of left lower extremity, subsequent encounter (S81.812D) Referral Organization [facility] Referring Provider First Name RICKY Referring Provider Last Name ALISIA Referring Provider Speciality Nurse Prac titioner Referred Provider Specialty Other Medica l Care General Notes Darius KELLY CMA 01/26 02:37:56 PM > [facility] wound care. Notes enclosed., Krystal KELLY Call Center 01/28/2025 02:31:24 PM >Pt will go to any location soonest open appt., Vernell KELLY Referrals 02/04/2025 12:14:04 PM > per 01/30/25 visit > Notes: she has a hematoma that may need to be drained; no evidence of cellulitis; gave her the phone number to [facility] wound care to call and set up appt; referral has been faxed twice, Vernell KELLY Referrals 05/20/2025 03:53:19 PM > per 02/04/25 encounter > 02/17/24 is scheduled to see [facility] Referral Priority Routine Reason CALL OFFICE TO SEE I F PATIENT WAS SEEN, NO NOTE IN CHART ... (02/04/25 W appt) [facility] Wound Care Referral Organization [facility] Referring Provider First Name RICKY Referring Provider Last Name ALISIA Referring Provider Speciality Nurse Jerry cazares Referred Provider Specialty Other Medica l [facility] General Notes Ellen KELLY Call Ctr 02/03/2025 09:11:24 AM > The patient would like a referral sent to [facility] at [facility], reason-Noninfected skin tear of left lower extremity Diagnosis code S81.812D, phone [phone], fax [phone], insurance confirmed, Vernell KELLY Referrals 02/04/2025 12:15:27 PM > medical referral and notes have been faxed to [facility] wound care at [phone], Cady KELLY Referrals 08/20/2025 08:46:08 PM > CALL OFFICE TO SEE IF PATIENT WAS SEEN, NO NOTE IN CHART Referral Priority Routine Reason for eval and tx of l eft hip pain. Alternative PT fax [phone]. pls print Diagnosis 1 Left hip pain (M25.5 52) Referral Organization [facility] Referring Provider First Name DWIGHT Referring Provider Last Name URSULA ROMAN Referring Provider Speciality Internal M edicine Referred Provider Specialty Physical The neno General Notes Alma KELLY [place] 1 10/31/2024 04:07:22 PM > [phone] Alternative PT faxed referral and last ov notes Referral Priority Routine MEDICATIONS Medication SIG (Take, Route, Frequency, Duration) Notes Start Date End Date Status Vitamin C 500 MG 1 tab(s) orally once a day Active Vitamin D3 50 MCG (1999 UT) 2 cap(s) Orally once a day Active LORazepam 0.5 MG 1 tablet at bedtime as needed Orally as needed for 30 days 09/16/2025 Active Magnesium 300 MG 1 capsule with a meal Orally Once a day Active Allopurinol 100 MG TAKE 1 TABLET BY MOUTH EVERY DAY Active Carvedilol 6.25 MG 1 tablet with food Orally Twice a day Active Collagen Ultra - as directed Orally COLLAGEN PEPTIDES 400mg Active Gabapentin 100 MG 2-3 cap(s) orally at night prn Active Tylenol 8 Hour Arthritis Pain 650 MG 2 tablets as needed Orally every 8 hrs Active Atorvastatin Calcium 20 MG 1 tab(s) orally once a day Active tiZANidine HCl 4 MG 1 tablet po bid prn Orally bid prn muscle spasm for 15 days Active B Complex - 1 cap(s) Orally once daily Active Losartan Potassium 25 MG 1 tab(s) orally twice a day Active Albuterol Sulfate HFA 108 (90 Base) MCG/ACT 1 puff as needed Inhalation every 4 hrs 10/27/2022 Active Spironolactone 25 MG 1 tablet Orally Once a day Active IMMUNIZATIONS Vaccine Route Administration Date Status Comme nts Td (Tetanus Diphtheria) IM Intramuscular 06/19/2022 Admini stered [id number] IM Intramuscular 08/15/2023 Administered Influenza, Fluzone HD 65+ IM Intramuscular 08/15/2023 Admi nistered SOCIAL HISTORY Tobacco Use: Social History Observation Description Date Details (start date - stop date) Former Smoker NA - NA Sex Assigned At : Social History Observation Description Sex Assigned At Unknown Smoking Question Answer Notes Are you a: former smoker How long has it been since you last smoked? > 10 years Alcohol Screen Question Answer Notes Did you have a drink containing alcohol in the p ast year? No Points 0 Interpretation Negative Section Notes: quit jul quit jul quit jul quit jul quit jul quit jul quit jul quit jul quit jul quit jul quit jul quit jul quit jul quit jul quit jul quit jul quit jul quit jul quit jul quit jul PROBLEMS Problem Type ICD Code Onset Dates Problem Status W/U Status Risk SNOMED Code Notes Problem FAMILY HX-GI MALIGNANCY (V16.0) Active confirmed Family history of malignant neoplasm of gastrointestinal tract (961894106) Problem Vitamin D deficiency (E55.9) Active confirmed 39417759 Problem Macrocytosis without anemia (D75.89) Active confirmed 734157892 Problem Diverticulosis (K57.90) Active confirmed 584802053 Problem Neuropathy (G62.9) Active confirmed 560689914 Problem Other chronic pain (G89.29) Active confirmed 62002748 Problem Pain in right ankle and joints of right foot (M25.571) Active confirmed 518485859 Problem History of colonic polyps (Z86.010) Active confirmed 719588288 Problem Anxiety (F41.9) Active confirmed 505997 02 Problem Primary osteoarthritis involving multiple joints (M15.0) Active confirmed 184462608 Problem Chronic obstructive pulmonary disease, unspecified COPD type (J44.9) Active confirmed 84401139 Problem Trochanteric bursitis of left hip (M70.62) Active confirmed 9680190 Problem 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) Active confirmed 08194908 Problem Muscle spasm (M62.838) Active confirmed 64644597 Problem 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) Active confirmed 107250601076775 Problem Costochondritis (M94.0) Active confirmed 00860004 Problem Primary osteoarthritis of right foot (M19.071) Active confirmed 996847921 Problem Subacromial bursitis, left (M75.52) Active confirmed 49037414 Problem LBBB (left bundle branch block) (I44.7) Active confirmed 83461806 Problem Primary hypertension (I10) Active confirmed 33262054 Problem Elevated BP without diagnosis of hypertension (R03.0) Active confirmed 555341586 Problem High cholesterol (E78.00) Active confirmed 90877174 Problem Subacromial bursitis of right shoulder joint (M75.51) Active confirmed 4064449824807150 Problem Bilateral hearing loss, unspecified hearing loss type (H91.93) Active confirmed 33734071 Problem History of hematuria (Z87.448) Active confirmed 495174019 Problem Cardiomyopathy, unspecified type (I42.9) Active confirmed 44169767 Problem Open wound (T14.8XXA) Active confirmed 688612807 Problem Medical orders for life-sustaining treatment (MOLST) form in chart (Z78.9) Active confirmed 782664834 full code Problem Hx of cholecystectomy (Z90.49) Active confirmed 812965794 Problem History of colonoscopy (Z98.890) [address] cherelle mahoney Problem Full code status (Z78.9) Active confirmed 283214111 Problem Hematoma of right breast (N64.89) Active confirmed 43638747255523466 VITAL SIGNS Blood pressure diastolic 74 mm Hg 09/16/2025 Height 61.75 in 09/16/2025 Blood pressure systolic 114 mm Hg 09/16/2025 Weight 151 lbs 09/16/2025 BMI 27.84 kg/m2 09/16/2025 Encounters Encounter Location Date Provider Diagnosis [address] [id number] 09/19/2024 DWIGHT RAMOS Vitamin D deficiency E55.9 ; High cholesterol E78.00 ; Anxiety F41.9 ; Chronic obstructive pulmonary disease, unspecified COPD type J44.9 ; LBBB (left bundle branch block) I44.7 ; Macrocytosis without anemia D75.89 ; Neuropathy G62.9 ; Primary hypertension I10 and Osteopenia of multiple sites M85.89 [address] 09/29/2024 DWIGHT FARMERACCO Trochanteric bursitis, unspecified laterality M70.60 [place] [address] 10/03/2024 DWIGHT RAMOS [place] [phone] 10/20/2024 DWIGHT BAGLEYCOLASMARTA [address] 11/13/2024 DWIGHT BAGLEYCOABEL [facility] [address] [place] [id number] 11/18/2024 DWIGHT ALBERTSAKCOLASACCO [facility] [address], [place] [id number] 11/18/2024 DWIGHT RAMOS Anxiety F41.9 [place] [phone] 11/20/2024 DWIGHT BAGLEYCOLASMARTA [place] [id number] 01/19/2025 RICKY CRUMP [facility] [address] [place] [phone] 01/20/2025 RICKY CRUMP Noninfected skin tear of left lower extremity, subsequent encounter S81.812D and Trochanteric bursitis of left hip M70.[address] [address] 01/23/2025 DWIGHT RAMOS [facility] [address] [address] 01/26/2025 RICKY ALISIA Noninfected skin tear of left lower extremity, subsequent encounter S81.812D ; Hematoma of right breast N64.89 ; Hematoma of left buttock S30.0XXA ; Chronic obstructive pulmonary disease, unspecified COPD type J44.9 and Anxiety F41.[address] [address] 01/26/2025 RICKY CRUMP [facility] [address] [address] 01/28/2025 DWIGHT RAMOS [address] [address] 01/29/2025 DWIGHT RAMOS [address] [address] 01/30/2025 BEATRIZ RON Noninfected skin tear of left lower extremity, subsequent encounter S81.812D [address] [address] 02/04/2025 DWIGHT RAMOS [facility] [address] [address] 02/06/2025 DWIGHT BAGLEYCOABEL [address] [address] 02/09/2025 DWIGHT RAMOS Laceration without foreign body, left lower leg, subsequent encounter S81.812D ; Hematoma of right breast N64.89 ; Primary hypertension I10 ; High cholesterol E78.00 ; Anxiety F41.9 and History of gout Z87.39 [facility] [address] [place] [address] 02/23/2025 DWIGHT RAMOS [address] [address] 03/09/2025 DWIGHT BAGLEYCOLASMARTA [address] [address] 03/18/2025 DWIGHT RAMOS Laceration of left lower extremity, sequela S81.812S ; High cholesterol E78.00 ; Primary hypertension I10 ; Anxiety F41.9 ; Left hip pain M25.552 ; History of gout Z87.39 and Cardiomyopathy, unspecified type I42.9 [facility] [address], [place] [id number] 03/20/2025 DWIGHT RAMOS [address] [address] 04/08/2025 DWIGHT RAMOS [place] [id number] 04/15/2025 DWIGHT RAMOS [place] [id number] 08/28/2025 DWIGHT RAMOS Anxiety F41.9 ; High cholesterol E78.00 ; Idiopathic chronic gout of multiple sites without tophus M1A.09X0 ; Neuropathy G62.9 and IFG (impaired fasting glucose) R73.01 [place] [phone] 08/28/2025 DWIGHT RAMOS [address] [address] 09/16/2025 DWIGHT RAMOS High cholesterol E78.00 ; [...] S81.812D) cont tx and fu as directed 08/28/2025 Anxiety (ICD-10 - F41.9) 09/29/2024 Trochanteric bursitis, unspecified laterality (ICD-10 - M70.60) 09/16/2025 High cholesterol (ICD-10 - E78.00) doing well on current regimen 09/19/2024 Vitamin D deficiency (ICD-10 - E55.9) Continue supplements, monitor levels. 03/18/2025 Laceration of left lower extremity, sequela (ICD-10 - S81.812S) cont [facility] as [facility] sig improved 01/30/2025 Noninfected skin tear of left lower extremity, subsequent encounter (ICD-10 - S81.812D) she has a hematoma that may need to be drained; no evidence of cellulitis; gave her the phone number to [facility] wound care to call and set up appt; referral has been faxed twice; advised to elevate leg when sitting above heart; minimize salt; tylenol as needed; keep wound clean and apply abx oint; monitor for any new/worsening symptoms 01/26/2025 Hematoma of right breast (ICD-10 - N64.89) Can use warm compresses. Continue to monitor tender areas, if not getting smaller over next several weeks knows to follow up 01/26/2025 Noninfected skin tear of left lower extremity, subsequent encounter (ICD-10 - S81.812D) Recommend wound care consult to soak wound, possibly debride since she has a large patch of clotted blood underneath a thick layer of steri strips. She will continue to change dressing every 1-2 days and monitor for surrounding erythema, warmth & discharge 01/20/2025 Noninfected skin tear of left lower extremity, subsequent encounter (ICD-10 - S81.812D) Pain is under control. She will take the doxy prescribed by [place] [facility] last night. She will gently clean the skin tear daily, allow steri strips to call off on their own, apply thin layer of bacitracin and gauze wrap. Will see her back in 1 week to reassess how skin tear is healing. 11/18/2024 Anxiety (ICD-10 - F41.9) 09/19/2024 High cholesterol (ICD-10 - E78.00) Has been taking and tolerating current dose of atorvastatin well and will continue. Will also continue to work on heart healthy diet. Will monitor fasting lipids. 09/16/2025 Chronic obstructive pulmonary disease, unspecified COPD type (ICD-10 - J44.9) cont tx adn fu w/ pulm as planned 03/18/2025 High cholesterol (ICD-10 - E78.00) cont statin and heart healthy 02/09/2025 Hematoma of right breast (ICD-10 - N64.89) improving/resolvin g 08/28/2025 High cholesterol (ICD-10 - E78.00) 08/28/2025 Idiopathic chronic gout of multiple sites without tophus (ICD-10 - M1A.09X0) 09/19/2024 Anxiety (ICD-10 - F41.9) Has received prescription for lorazepam last filled October of this year still has 6 tabs left. [facility] has been appropriate. Refill sent. Medication and possible side effects reviewed with patient today. 09/16/2025 Anxiety (ICD-10 - F41.9) Have reviewed [facility] and refilled her annual prescription for benzodiazepine today. Have reviewed medication and possible side effects in detail. 03/18/2025 Primary hypertension (ICD-10 - I10) cont current med regimen and will monitor 01/20/2025 Trochanteric bursitis of left hip (ICD-10 - M70.62) She will wait to resume PT until next week 01/26/2025 Hematoma of left buttock (ICD-10 - S30.0XXA) Can use warm compresses 02/09/2025 Primary hypertension (ICD-10 - I10) is tolerating current regimen well and will cont 09/16/2025 Idiopathic chronic gout of multiple sites without tophus (ICD-10 - M1A.09X0) seeing [facility]ology at [facility], And will continue current regimen which has been working well for her 09/19/2024 Chronic obstructive pulmonary disease, unspecified COPD type (ICD-10 - J44.9) Have reviewed importance of vaccinations. Seems patient is up-to-date. Continue treatment and follow-up as directed by her cycle analyst. 03/18/2025 Anxiety (ICD-10 - F41.9) feels mood is good 08/28/2025 Neuropathy (ICD-10 - G62.9) 01/26/2025 Chronic obstructive pulmonary disease, unspecified COPD type (ICD-10 - J44.9) 02/09/2025 High cholesterol (ICD-10 - E78.00) cont statin and heart healthy diet will monitor fasting lipids 08/28/2025 IFG (impaired fasting glucose) (ICD-10 - R73.01) 09/16/2025 Neuropathy (ICD-10 - G62.9) Has been stable and unchanged. Is taking for an PT for balance training. 03/18/2025 Left hip pain (ICD-10 - M25.552) bursitis and OA had been doing well until fall in 12/2024 will refer back to PT 02/09/2025 Anxiety (ICD-10 - F41.9) see hpi feels mood good overall 01/26/2025 Anxiety (ICD-10 - F41.9) 09/19/2024 LBBB (left bundle branch block) (ICD-10 - I44.7) As per HPI. No changes to her regimen and has routine follow-up with cardiology. 09/19/2024 Macrocytosis without anemia (ICD-10 - D75.89) 03/18/2025 History of gout (ICD-10 - Z87.39) cont current dose allopurinol and will monitor uric acid 02/09/2025 History of gout (ICD-10 - Z87.39) doing well on allopurinol, no flares 09/16/2025 Encounter for screening mammogram for malignant neoplasm of breast (ICD-10 - Z12.31) Order slip for mammogram provided today. 03/18/2025 Cardiomyopathy, unspecified type (ICD-10 - I42.9) cont meds adn fu w/ cardiology as planned 09/19/2024 Neuropathy (ICD-10 - G62.9) chronic and unchanged will monitor 09/19/2024 Primary hypertension (ICD-10 - I10) cont current med regimen and low sodium diet 09/16/2025 Cardiomyopathy, unspecified type (ICD-10 - I42.9) has had reg fu w/ cards, no change to regimen had recent (negative) testing for cardiac amyloid 09/19/2024 Osteopenia of multiple sites (ICD-10 - M85.89) have reviewed oseopenia, risks of progreassion adn options for treatment 09/19/2024 Other Health Risk Assessment reviewed with patient and scanned into chart. 01/20/2025 Other I am seeing the patient under the supervision of the co-signing physician. The physician was available for consultation at the time of the office visit. 01/26/2025 Other I am seeing the patient under the supervision of the co-signing physician. The physician was available for consultation at the time of the office visit. 01/30/2025 Other I am seeing the patient under the supervision of the co-signing physician. The physician was available for consultation at the time of the office visit. PLAN OF TREATMENT Pending Test Test Name Order Date Bone density 05/05/2022 Mammogram Screening Bilatera l, Perform ultrasound guided aspiration and/or breast biopsy if warranted 09/16/2025 Future Test Test Name Order Date HEPATIC FUNCTION PANEL 09/11/2022 Bone Density 3 site DEXA 08/15/2023 Hemoglobin [id number] 08/31/2025 [id number] 08/31/2025 Hepatic Function Panel [id number] LP+Non-HDL Cholesterol-[id number] 08/31/2025 BMP8+eGFR-[id number] 08/31/2025 Next Appt Details Provider Name:DWIGHT MURGUIA MODESTOANICETOMARILEECooper, 03/19/2026 01:30:00 PM, [address] [place], [address], Insurance Providers Payer Name Payer Address Payer Phone Subscriber Number Group Number Insured Name Patient Relationship to Insured Coverage Start Date Coverage End Date MEDICARE [employer] [address] [facility] [address] [id number] SARAH KUMAR Self - patient is the insured 1 [facility] [address] [place] [address] [id number] SARAH KUMAR Self - patient is the insured MEDICATIONS ADMINISTERED Medication Instructions Date of Administration Dosage Notes Kenalog 02/17/2019 60 mg Triamcinolone Acetonide, mul ti-dose vial, 08/13/2019 60 mg Triamcinolone Acetonide, mul ti-dose vial, 06/06/2021 60 mg Triamcinolone Acetonide, mul ti-dose vial, 06/23/2022 60 mg Triamcinolone Acetonide, mul ti-dose vial, 09/25/2022 60 mg MEDICAL (GENERAL) HISTORY Medical History History ICD Code Arthritis Gastroesophageal reflux disease (GERD) Gout hypertension IBS phlebitis pneumonia Colonoscopy Dr Steve 11/26/07 long redundant colon residual stool ,diverticular disease rectal polyp tubular adenoma family hx colon cancer EGD Dr Steve 12/27/04 Sm HH w/Ant rin g no obstruction EGD Dr Steve 12/18/14 non erosive gastriti s Colonoscopy Dr Steve 02/13/11 rare diverticulosis and sm hemorrhoids repeat 5yrs sigmoid diverticulitis 07/2011 seen IN [facility] per notes RX antibxs Colonoscopy 01/03/19 7mm polyp in the sigmoid colon and in the descending colon otherwise normal 5 years recall Path: tubular adenoma Surgical History Surgery Date(Month/Year) hysterectomy spinal fusion oophorectomy, bilateral cholecystectomy 10/2018 cardiac cath 01/2021 Hospitalization History Reason Date(Month/Year) [facility] Atypical chest pain 11/2007 [facility] - abdominal pain, elevated LFT's 2018 [facility]: chest pain,diffulculty breathing 01/31/21 [facility] / [facility]: pt fell down cellar stairs [facility]: fell on sat. 01/17/25
--- OUTSIDE RECORDS SUMMARY | 2025-09-18 14:55 | XMS_ITS | Continuity of Care Document ---
Author Organization [facility], KIM Lopez [address] Address [address] [place] [address] Care Team Providers Care Communication Equipment Repairer Name Role Phone DWIGHT ALLEN Referring Provider DWIGHT KATZ Primary Care Provid er Assessment No assessment recorded. Plan of Treatment Reminders Order Date Submit Date Provider Last Modified By Organization Details Last Modified Time Details Appointments None record ed. Lab None record ed. Referral None record ed. Procedures None record ed. Surgeries None record ed. Imaging None record ed. Medication Orders None record ed. Patient TargetsNo targets recorded. Patient InstructionsNo instructions recorded. Reason for Referral None Reported. Procedures Surgical History Date Name Laterality Status Provider Name and Address Organization Details Recorded Time Trigger Finger Kenalog Injection completed Kalpesh Ventura MD [address], [place], [address], [facility] 07/08/2025 15:47:42 Imaging Results None recorded. Procedure Notes None recorded. Medical Equipment None Reported. Allergies Allergen ID Allergen Name Allergen Category Reaction Reaction Severity Criticality Documentation Date Start Date Code Code System Note Provider Name and Address Organization Details Recorded Time 646731 shrimp allergeni c extract food Not available Not available Not available 07/04/2024 96429 2 RxNorm TREY sales [facility] 14:22:12 611877 Substance with sulfonami de structure and antibacte rial mechanism of action (substanc e) medicatio n Not available Not available Not available 07/04/2024 10600 8003 SNOMED TREY sales [facility] 4 14:22:20 Medications Name Sig Start [...] Updated DateTime 07/08/2025 160.02 cm 27.3 kg/m2 47535.22 g TREY V[place]GAS [place] [facility] [place] [facility] 07/08/2025 14:14:52 Social History None recorded. Functional Status None recorded. Mental Status None recorded. Family History Nothing Reported. Medical History No medical history recorded. Gynecological HistoryNo gynecological history recorded. Obstetrics History GPAL:G 0 P 0 0 0 0 Past Encounters Encounter ID Performer Location Encounter Start Date Encounter Closed Date Diagnosis/Indication Diagnosis SNOMED-CT Code Diagnosis ICD10 Code Diagnosis IMO Codes Diagnosis Note [id number] MD [facility] - [facility] [address] [place] [address] 07/08/2025 13:58:29 07/16/2025 08:51:15 Flexor tenosynovitis of finger 810781448 M65.949 062083 Arthritis of first carpometacarpal joint of left hand 1620995337 887128 M18.12 [id number] Health Concerns Section Related Observation LastModified by Organization Detai ls LastModified Time None Recorded Concern Status LastModified by Organization Details LastModified Time None Recorded Payers Encounter Date Sequence Insurance Name Policy Number Policy Barbosa Covered Member ID Barbosa Member ID Guarantor Name 07/08/2025 2 [facility] IN[facility] (MEDICARE SUPPLEMENT) [id number] Chichi Franco [id number] Chichi Franco 07/08/2025 1 MEDICARE [place]: [facility] [employer] [facility] Chichi Franco [id number] Chichi Franco Notes Date Note Type Note Provider Name and Address Organization Details Recorded Time 07/08/2025 text/html ROS as noted in the [...] X-rays ordered, obtained, and reviewed today at [facility]: PA and lateral of the left TM [...] follow-up at her discretion. Kalpesh Ventura MD [facility] [address], [place], [address], [facility] 07/08/2025 15:48:17 OBGyn Episode No OBEpisode recorded.
--- OUTSIDE RECORDS SUMMARY | 2025-09-18 14:55 | XMS_ITS | Encounter Summary ---
Author Organization [facility] Address [address] [place] [address] Care Team Providers Care Ball Worker Name Role Phone ForrestmaryVika Montero DO Primary Care Pro vider Encounter Details Date Type Department Care Team (Late st Contact Info) Description 08/14/2025 Results Follow-Up Gastroenterology - [address] [place] [address] Kasia Sullivna MD [address] [place] [address] Social History Tobacco Use Types Packs/Day Years Used Date Smoking Tobacco: Former Smokeless Tobacco: Never Comments:Quit 43 years ago Alcohol Use Standard [...] PM EDT Sexual Orientation Not on file documented as of this encounter Progress Notes * Kasia Sullivan MD - 08/14/2025 1:37 PM EDT Please call patient and let her know that 3 of the 5 small colon polyps that were removed were precancerous in nature. No repeat colonoscopy is required. documented in this encounter Plan of Treatment Not on file documented as of this encounter Goals Goal Patient Goal Type Associated Problems Recent Progress Patient-Stated? Author Wound volume breakdown reduced by X% by week 4 Care Plan Impaired Tissue No Fabiana Warner RN Wound volume breakdown reduced by X% by week 8 Care Plan Impaired Tissue No Fabiana Warner RN Wound volume breakdown reduced by X% by week 12 Care Plan Impaired Tissue Fabiana Mario RN Quit using tobacco (cigarettes, smokeless, etc) [...] Care Plan Autogenerated Problem No Tanya Courtney documented as of this encounter Visit Diagnoses Not on filedocumented in this encounter Additional Health Concerns Active Problems Noted Date Diagnosed Date Impaired Tissue 02/12/2025 Education needed on impact of smoking on wound 0 02/12/2025 Education needed related to ulceration/compromised skin integrity. 02/12/2025 Autogenerated Problem 07/27/2025 Assessment Noted Time PHQ-9 Depression Total Score: 0 02/12/20 1:28 PM EDT documented as of this encounter Care Teams Ball Worker Relationship Specialty Start Date End Date iVka Carreno DO [address] [phone] PCP - General Internal Medicine 12/09/24 documented as of this encounter
== END 2025-09-18 15:01 | disposition home or self-care (01) ==
LOC: HO.HPS 14:35
PROVIDERS: PCP Internal Medicine; Visit Provider Internal Medicine Pulmonary Disease
DX: R06.01 Orthopnea (principal); J44.9 Chronic obstructive pulmonary disease, unspecified; R91.1 Solitary pulmonary nodule
CPT/HCPCS: 99214

== ENCOUNTER → 2025-09-18 14:35 | Outpatient (BNVA) | payer MEDICARE, OTHER, SELFPAY | PROVIDERS: PCP Internal Medicine; Visit Provider Internal Medicine Pulmonary Disease | DX: R06.01 Orthopnea (principal); J44.9 Chronic obstructive pulmonary disease, unspecified; R91.1 Solitary pulmonary nodule; Z87.891 Personal history of nicotine dependence; Z80.1 Family history of malignant neoplasm of trachea, bronchus and lung | CPT/HCPCS: 99212 ==